=== PATIENT | male | born 1950 | race Two or more races ===

== ENCOUNTER 2021-02-14 21:00 | Inpatient (IN) | payer OTHER ==
[~2021-02-14] VITALS: Ht 185.4 cm; Wt 93.2 kg
[2021-02-14] MEDS ORDERED: ACETAMINOPHEN 325 MG TAB PO ONE (21:30)
[2021-02-14 22:17] LABS: Basophils # (auto) 0 10 ^3/uL (0-0.2); Basophils % (auto) 0.5 % (0.0-2.0); Eosinophils # (auto) 0 10 ^3/uL (0-0.8); Eosinophils % (auto) 0.1 % (0.0-7.0); Hematocrit 45.8 % (41.0-53.0); Lymphocytes # (auto) 0.6 10 ^3/uL (0.4-5.4); Mean Corpuscular Hemoglobin 32.1 pg (28.0-32.0); Mean Corpuscular Volume 91.6 fL (80.0-100.0); Monocytes # (auto) 0.3 10 ^3/uL (0-1.3); Monocytes % (auto) 4.4 % (0.0-12.0); Neutrophils # (auto) 4.9 10 ^3/uL (1.6-8.6); Red Cell Distribution Width 14.1 % (11.8-14.3); White Blood Cell 5.8 10^3/uL (4.4-10.8)
[2021-02-14 22:27] LABS: INR 1.05 (0.9-1.15)
[2021-02-14 22:28] LABS: Albumin 2.6 g/dL (3.4-5.0); Anion Gap 10 (5-15); BUN/Creatinine Ratio 22.5; Blood Urea Nitrogen 36 mg/dL (7-18); Calcium 8.3 mg/dL (8.5-10.1); Carbon Dioxide 20 mmol/L (21-32); Chloride 107 mmol/L (98-107); GFR African American 56 mL/min; GFR Non-African American 46 mL/min; Glucose 135 mg/dL (74-106); Magnesium 2.6 mg/dL (1.6-2.6); Potassium 4.1 mmol/L (3.5-5.1); Sodium 137 mmol/L (136-145)
[2021-02-14 22:33] LABS: Alanine Aminotransferase 104 U/L (16-61); Alkaline Phosphatase 70 U/L (45-117); Aspartate Aminotransferase 140 U/L (15-37); Bilirubin, Total 0.6 mg/dL (0.2-1.0); Total Protein 6.5 g/dL (6.4-8.2)
[2021-02-15] VITALS (40 sets, daily range): BP systolic 101–153; BP diastolic 60–84
[2021-02-15] MEDS ORDERED: AZITHROMYCIN 500MG/ 250ML 250 ML IV ONE (00:15)
[2021-02-15] MEDS ORDERED: DexAMETHasone SOD PHOS 10MG/1ML VIAL INJ IV ONE (00:15)
[2021-02-15] MEDS ORDERED: NITROGLYCERIN 0.4 MG SL TAB SL PRN (03:00)
[2021-02-15] MEDS ORDERED: cefTRIAXone 1GM/50ML D5W 50 ML IV ONE (03:00)
[2021-02-15] MEDS ORDERED: MORPHINE SULF INJ 2 MG/ML SYRINGE 1ML IV PRN (03:00)
[2021-02-15 04:22] LABS: Magnesium 2.8 mg/dL (1.6-2.6)
[2021-02-15] MEDS: IPRATROPIUM BROMIDE HFA AER IN SCH ×4 (06:00→22:22)
[2021-02-15] MEDS: cefTRIAXone 1GM/50ML D5W 50 ML IV SCH (08:57)
[2021-02-15] MEDS: AZITHROMYCIN 500MG/ 250ML 250 ML IV SCH (10:44)
[2021-02-15] MEDS: ENOXAPARIN SOD 40 MG/0.4 ML SYRINGE SC SCH (10:44)
[2021-02-15] MEDS: ZINC SULFATE 220mg CAP or TAB PO SCH (10:45)
[2021-02-15] MEDS ORDERED: REMDESIVIR PER PHARMACY 0 ML IV SCH (10:45)
[2021-02-15] MEDS: CHOLECALCIFEROL (VITD3) 2,000 UNIT CAP/TAB PO SCH (10:45)
[2021-02-15] MEDS: DexAMETHasone SOD PHOS 10MG/1ML VIAL INJ IV SCH (10:45)
[2021-02-15] MEDS: PANTOPRAZOLE 40 MG TAB PO SCH (10:45)
[2021-02-15] MEDS: ASCORBIC ACID 1,000 MG TAB PO SCH (10:45)
[2021-02-15] MEDS: BUDESONIDE (INHALATION) 180 MCG IH IN SCH ×2 (11:01→18:47)
[2021-02-15] MEDS: TOCILIZUMAB 400 MG in SODIUM CHL 0.9% 80 ML IV SCH (14:05)
[2021-02-15] MEDS ORDERED: FINA1TAB10 OR (14:31)
[2021-02-15] MEDS ORDERED: ATO40T PO (14:31)
[2021-02-15] MEDS ORDERED: FENO54TA PO (14:31)
[2021-02-15] MEDS ORDERED: TAM04C PO (14:31)
[2021-02-15] MEDS ORDERED: LISI-275 PO (14:31)
[2021-02-15] MEDS ORDERED: CLOP75TA70 PO (14:31)
[2021-02-15] MEDS ORDERED: REMDESIVIR 200 MG in NS 210ml LOADING DOSE ADULT IV ONE (15:00)
[2021-02-15 15:06] LABS: Cholesterol 91 mg/dL (< 200)
[2021-02-15 15:08] LABS: HDL Cholesterol 25 mg/dL (40-59); LDL Cholesterol 37 mg/dL (< 100); Triglycerides 222 mg/dL (< 150)
[2021-02-15] MEDS: MUPIROCIN 2% OINT 15gm or 22gm EACHNOSTRI SCH (21:49)
[2021-02-15] MEDS ORDERED: ATORVASTATIN 20 MG TAB PO SCH (22:00)
[2021-02-16] VITALS (23 sets, daily range): BP systolic 105–134; BP diastolic 56–85
[2021-02-16 05:11] LABS: Basophils # (auto) 0 10 ^3/uL (0-0.2); Basophils % (auto) 0.3 % (0.0-2.0); Eosinophils # (auto) 0 10 ^3/uL (0-0.8); Hemoglobin 16.3 g/dL (13.5-17.5); Lymphocytes # (auto) 0.6 10 ^3/uL (0.4-5.4); Lymphocytes % (auto) 8.1 % (10.0-50.0); Mean Corpuscular Hemoglobin 31.9 pg (28.0-32.0); Mean Corpuscular Hgb Conc. 34.6 g/dL (32.0-36.0); Mean Corpuscular Volume 92.3 fL (80.0-100.0); Monocytes # (auto) 0.3 10 ^3/uL (0-1.3); Monocytes % (auto) 4.1 % (0.0-12.0); Neutrophils % (auto) 87.5 % (37.0-80.0); Nucleated Red Blood Cells % 0.1 %; Red Cell Distribution Width 14.2 % (11.8-14.3); White Blood Cell 6.9 10^3/uL (4.4-10.8)
[2021-02-16 05:21] LABS: Albumin 2.3 g/dL (3.4-5.0); Calcium 8.4 mg/dL (8.5-10.1); Potassium 4.3 mmol/L (3.5-5.1)
[2021-02-16 05:26] LABS: BUN/Creatinine Ratio 27.7; Bilirubin, Total 0.6 mg/dL (0.2-1.0); Total Protein 6.5 g/dL (6.4-8.2)
[2021-02-16] MEDS: IPRATROPIUM BROMIDE HFA AER IN SCH ×4 (06:20→22:00)
[2021-02-16] MEDS: BUDESONIDE (INHALATION) 180 MCG IH IN SCH ×2 (06:20→22:00)
[2021-02-16] MEDS: cefTRIAXone 1GM/50ML D5W 50 ML IV SCH (09:04)
[2021-02-16] MEDS: LISINOPRIL 5 MG TAB PO SCH (10:00)
[2021-02-16] MEDS: ASCORBIC ACID 1,000 MG TAB PO SCH (10:26)
[2021-02-16] MEDS: PANTOPRAZOLE 40 MG TAB PO SCH (10:27)
[2021-02-16] MEDS: ZINC SULFATE 220mg CAP or TAB PO SCH (10:27)
[2021-02-16] MEDS: ENOXAPARIN SOD 40 MG/0.4 ML SYRINGE SC SCH (10:27)
[2021-02-16] MEDS: CHOLECALCIFEROL (VITD3) 2,000 UNIT CAP/TAB PO SCH (10:27)
[2021-02-16] MEDS: CLOPIDOGREL BISULFATE 75 MG TAB PO SCH (10:27)
[2021-02-16] MEDS: AZITHROMYCIN 500MG/ 250ML 250 ML IV SCH (10:28)
[2021-02-16] MEDS: DexAMETHasone SOD PHOS 10MG/1ML VIAL INJ IV SCH (10:28)
[2021-02-16] MEDS: TOCILIZUMAB 400 MG in SODIUM CHL 0.9% 80 ML IV SCH (14:05)
[2021-02-16] MEDS: REMDESIVIR 100mg 100 MG in SODIUM CHL 0.9% 230 ML IV SCH (15:57)
[2021-02-16] MEDS: MUPIROCIN 2% OINT 15gm or 22gm EACHNOSTRI SCH (22:02)
[2021-02-16] MEDS: ATORVASTATIN 20 MG TAB PO SCH (22:03)
[2021-02-17 00:01] VITALS: BP 128/66
[2021-02-17 04:00] VITALS: BP 130/65
[2021-02-17] MEDS: IPRATROPIUM BROMIDE HFA AER IN SCH ×5 (06:00→22:00)
[2021-02-17 08:00] VITALS: BP 133/70
[2021-02-17] MEDS: cefTRIAXone 1GM/50ML D5W 50 ML IV SCH (08:39)
[2021-02-17] MEDS: BUDESONIDE (INHALATION) 180 MCG IH IN SCH ×2 (10:00→22:00)
[2021-02-17] MEDS: LISINOPRIL 5 MG TAB PO SCH (10:00)
[2021-02-17] MEDS: AZITHROMYCIN 500MG/ 250ML 250 ML IV SCH (10:26)
[2021-02-17] MEDS: CLOPIDOGREL BISULFATE 75 MG TAB PO SCH (10:27)
[2021-02-17] MEDS: PANTOPRAZOLE 40 MG TAB PO SCH (10:27)
[2021-02-17] MEDS: TAMSULOSIN HYDROCHLORIDE 0.4 MG CAP PO SCH (10:27)
[2021-02-17] MEDS: ZINC SULFATE 220mg CAP or TAB PO SCH (10:27)
[2021-02-17] MEDS: ENOXAPARIN SOD 40 MG/0.4 ML SYRINGE SC SCH (10:27)
[2021-02-17] MEDS: CHOLECALCIFEROL (VITD3) 2,000 UNIT CAP/TAB PO SCH (10:27)
[2021-02-17] MEDS: ASCORBIC ACID 1,000 MG TAB PO SCH (10:27)
[2021-02-17] MEDS: DexAMETHasone SOD PHOS 10MG/1ML VIAL INJ IV SCH (10:28)
[2021-02-17] MEDS: FINASTERIDE 5 MG TAB PO SCH (10:28)
[2021-02-17] MEDS: MUPIROCIN 2% OINT 15gm or 22gm EACHNOSTRI SCH ×2 (10:29→22:04)
[2021-02-17 11:34] LABS: Albumin 2.5 g/dL (3.4-5.0); Calcium 8.7 mg/dL (8.5-10.1); Potassium 4.5 mmol/L (3.5-5.1)
[2021-02-17 11:44] LABS: BUN/Creatinine Ratio 28.6; Bilirubin, Total 0.5 mg/dL (0.2-1.0); Total Protein 6.4 g/dL (6.4-8.2)
[2021-02-17 12:00] VITALS: BP 131/74
[2021-02-17] MEDS: REMDESIVIR 100mg 100 MG in SODIUM CHL 0.9% 230 ML IV SCH (15:18)
[2021-02-17 16:00] VITALS: BP 134/73
[2021-02-17 20:00] VITALS: BP 135/77
[2021-02-17] MEDS: ATORVASTATIN 20 MG TAB PO SCH (22:04)
[2021-02-18] VITALS (7 sets, daily range): BP systolic 113–137; BP diastolic 59–82
[2021-02-18] MEDS: SIMETHICONE 80 MG CHEWABLE TABLET PO PRN (00:21)
[2021-02-18] MEDS ORDERED: SODIUM CHLORIDE 0.9% 500 ML IV ONE (00:30)
[2021-02-18] MEDS ORDERED: chlorproMAZINE HCL 25 MG TAB PO PRN ×2 (00:30→11:15)
[2021-02-18] MEDS: TEMAZEPAM 15 MG CAP PO PRN ×2 (03:21→23:06)
[2021-02-18 05:26] LABS: Basophils # (auto) 0 10 ^3/uL (0-0.2); Basophils % (auto) 0.2 % (0.0-2.0); Eosinophils # (auto) 0 10 ^3/uL (0-0.8); Hematocrit 47.5 % (41.0-53.0); Hemoglobin 16.7 g/dL (13.5-17.5); Lymphocytes # (auto) 0.5 10 ^3/uL (0.4-5.4); Lymphocytes % (auto) 7.5 % (10.0-50.0); Mean Corpuscular Hemoglobin 32.4 pg (28.0-32.0); Mean Corpuscular Hgb Conc. 35.1 g/dL (32.0-36.0); Mean Corpuscular Volume 92.3 fL (80.0-100.0); Monocytes # (auto) 0.2 10 ^3/uL (0-1.3); Monocytes % (auto) 3.6 % (0.0-12.0); Neutrophils # (auto) 5.8 10 ^3/uL (1.6-8.6); Neutrophils % (auto) 88.7 % (37.0-80.0); Nucleated Red Blood Cells % 0.1 %; Red Blood Cells 5.15 10^6/uL (4.5-5.90); Red Cell Distribution Width 14.2 % (11.8-14.3); White Blood Cell 6.5 10^3/uL (4.4-10.8)
[2021-02-18 05:45] LABS: Potassium 4.4 mmol/L (3.5-5.1)
[2021-02-18 05:48] LABS: Albumin 2.7 g/dL (3.4-5.0); Calcium 8.5 mg/dL (8.5-10.1)
[2021-02-18 05:51] LABS: Bilirubin, Total 0.7 mg/dL (0.2-1.0); Total Protein 6.2 g/dL (6.4-8.2)
[2021-02-18] MEDS: BUDESONIDE (INHALATION) 180 MCG IH IN SCH (06:22)
[2021-02-18] MEDS: IPRATROPIUM BROMIDE HFA AER IN SCH ×3 (06:22→18:00)
[2021-02-18] MEDS: cefTRIAXone 1GM/50ML D5W 50 ML IV SCH (09:01)
[2021-02-18] MEDS: TAMSULOSIN HYDROCHLORIDE 0.4 MG CAP PO SCH (09:21)
[2021-02-18] MEDS: MUPIROCIN 2% OINT 15gm or 22gm EACHNOSTRI SCH ×2 (09:21→23:05)
[2021-02-18] MEDS: PANTOPRAZOLE 40 MG TAB PO SCH (09:21)
[2021-02-18] MEDS: ZINC SULFATE 220mg CAP or TAB PO SCH (09:21)
[2021-02-18] MEDS: CLOPIDOGREL BISULFATE 75 MG TAB PO SCH (09:21)
[2021-02-18] MEDS: ASCORBIC ACID 1,000 MG TAB PO SCH (09:22)
[2021-02-18] MEDS: CHOLECALCIFEROL (VITD3) 2,000 UNIT CAP/TAB PO SCH (09:22)
[2021-02-18] MEDS: AZITHROMYCIN 500MG/ 250ML 250 ML IV SCH (09:22)
[2021-02-18] MEDS: DexAMETHasone SOD PHOS 10MG/1ML VIAL INJ IV SCH (09:22)
[2021-02-18] MEDS: FINASTERIDE 5 MG TAB PO SCH (09:22)
[2021-02-18] MEDS: LISINOPRIL 5 MG TAB PO SCH (09:23)
[2021-02-18] MEDS: ENOXAPARIN SOD 40 MG/0.4 ML SYRINGE SC SCH (09:23)
[2021-02-18] MEDS ORDERED: BACLOFEN 10 MG TAB PO PRN (10:00)
[2021-02-18] MEDS: REMDESIVIR 100mg 100 MG in SODIUM CHL 0.9% 230 ML IV SCH (14:55)
[2021-02-18] MEDS: ATORVASTATIN 20 MG TAB PO SCH (23:06)
[2021-02-18] MEDS ORDERED: guaiFENesin 200 MG/10 ML UD PO PRN (23:45)
[2021-02-19] VITALS: BP 124/66
[2021-02-19] MEDS: IPRATROPIUM BROMIDE HFA AER IN SCH ×5 (00:11→22:36)
[2021-02-19] MEDS: BUDESONIDE (INHALATION) 180 MCG IH IN SCH ×3 (00:11→22:36)
[2021-02-19] MEDS: ALBUTEROL SULF HFA 90MCG INH 200DOSE IN PRN (00:12)
[2021-02-19 04:00] VITALS: BP 129/76
[2021-02-19 05:28] LABS: Basophils # (auto) 0 10 ^3/uL (0-0.2); Eosinophils # (auto) 0 10 ^3/uL (0-0.8); Eosinophils % (auto) 0.5 % (0.0-7.0); Hematocrit 49.8 % (41.0-53.0); Hemoglobin 17.2 g/dL (13.5-17.5); Lymphocytes # (auto) 0.6 10 ^3/uL (0.4-5.4); Lymphocytes % (auto) 7.4 % (10.0-50.0); Mean Corpuscular Hemoglobin 31.9 pg (28.0-32.0); Mean Corpuscular Hgb Conc. 34.5 g/dL (32.0-36.0); Mean Corpuscular Volume 92.4 fL (80.0-100.0); Monocytes # (auto) 0.2 10 ^3/uL (0-1.3); Monocytes % (auto) 2.6 % (0.0-12.0); Neutrophils # (auto) 6.7 10 ^3/uL (1.6-8.6); Neutrophils % (auto) 89.5 % (37.0-80.0); Nucleated Red Blood Cells % 0.1 %; Red Blood Cells 5.39 10^6/uL (4.5-5.90); Red Cell Distribution Width 13.6 % (11.8-14.3); White Blood Cell 7.5 10^3/uL (4.4-10.8)
[2021-02-19 06:04] LABS: Potassium 4.4 mmol/L (3.5-5.1)
[2021-02-19 06:12] LABS: Albumin 2.5 g/dL (3.4-5.0); BUN/Creatinine Ratio 27.6; Bilirubin, Total 0.7 mg/dL (0.2-1.0); Calcium 8.6 mg/dL (8.5-10.1); Total Protein 6.2 g/dL (6.4-8.2)
[2021-02-19 08:00] VITALS: BP 124/74
[2021-02-19] MEDS: ONDANSETRON HCL 4 MG/2 ML VIAL IV PRN (08:43)
[2021-02-19] MEDS ORDERED: FUROSEMIDE 20 MG/2 ML VIAL IV ONE (09:00)
[2021-02-19] MEDS: cefTRIAXone 1GM/50ML D5W 50 ML IV SCH (09:25)
[2021-02-19] MEDS: MUPIROCIN 2% OINT 15gm or 22gm EACHNOSTRI SCH ×2 (09:26→22:55)
[2021-02-19] MEDS: CHOLECALCIFEROL (VITD3) 2,000 UNIT CAP/TAB PO SCH (09:27)
[2021-02-19] MEDS: ZINC SULFATE 220mg CAP or TAB PO SCH (09:27)
[2021-02-19] MEDS: DexAMETHasone SOD PHOS 10MG/1ML VIAL INJ IV SCH (09:27)
[2021-02-19] MEDS: TAMSULOSIN HYDROCHLORIDE 0.4 MG CAP PO SCH (09:28)
[2021-02-19] MEDS: PANTOPRAZOLE 40 MG TAB PO SCH (09:28)
[2021-02-19] MEDS: ASCORBIC ACID 1,000 MG TAB PO SCH (09:28)
[2021-02-19] MEDS: CLOPIDOGREL BISULFATE 75 MG TAB PO SCH (09:29)
[2021-02-19] MEDS: ENOXAPARIN SOD 40 MG/0.4 ML SYRINGE SC SCH (09:30)
[2021-02-19] MEDS: FINASTERIDE 5 MG TAB PO SCH (09:31)
[2021-02-19] MEDS ORDERED: hydrALAZINE HCL 20 MG/ML VL IV PRN (09:45)
[2021-02-19 12:00] VITALS: BP 135/84
[2021-02-19] MEDS: AZITHROMYCIN 500MG/ 250ML 250 ML IV SCH (14:06)
[2021-02-19] MEDS: Ensure Enlive Strawberry 8oz Bottle PO SCH ×2 (14:58→18:00)
[2021-02-19] MEDS: ACETAMINOPHEN 500 MG TAB PO PRN (14:59)
[2021-02-19 16:00] VITALS: BP 113/74
[2021-02-19] MEDS: REMDESIVIR 100mg 100 MG in SODIUM CHL 0.9% 230 ML IV SCH (16:44)
[2021-02-19 19:00] VITALS: BP 111/60
[2021-02-19] MEDS: ATORVASTATIN 20 MG TAB PO SCH (22:55)
[2021-02-19] MEDS: TEMAZEPAM 15 MG CAP PO PRN (22:56)
[2021-02-20] VITALS (9 sets, daily range): BP systolic 100–138; BP diastolic 56–84
[2021-02-20 05:42] LABS: Calcium 8.7 mg/dL (8.5-10.1); Potassium 4.5 mmol/L (3.5-5.1)
[2021-02-20 05:45] LABS: BUN/Creatinine Ratio 26.2
[2021-02-20] MEDS: PANTOPRAZOLE 40 MG TAB PO SCH (08:27)
[2021-02-20] MEDS: ONDANSETRON HCL 4 MG/2 ML VIAL IV PRN (08:27)
[2021-02-20] MEDS: SIMETHICONE 80 MG CHEWABLE TABLET PO PRN (08:27)
[2021-02-20] MEDS: cefTRIAXone 1GM/50ML D5W 50 ML IV SCH (08:54)
[2021-02-20] MEDS: Ensure Enlive Strawberry 8oz Bottle PO SCH ×3 (09:00→21:31)
[2021-02-20] MEDS ORDERED: FUROSEMIDE 20 MG/2 ML VIAL IV ONE (09:15)
[2021-02-20] MEDS: PROMETHAZINE W/CODEINE 5 ML ORAL SYRUP PO PRN ×2 (09:43→22:00)
[2021-02-20] MEDS: ASCORBIC ACID 1,000 MG TAB PO SCH (09:44)
[2021-02-20] MEDS: FINASTERIDE 5 MG TAB PO SCH (09:44)
[2021-02-20] MEDS: TAMSULOSIN HYDROCHLORIDE 0.4 MG CAP PO SCH (09:44)
[2021-02-20] MEDS: CHOLECALCIFEROL (VITD3) 2,000 UNIT CAP/TAB PO SCH (09:44)
[2021-02-20] MEDS: ZINC SULFATE 220mg CAP or TAB PO SCH (09:44)
[2021-02-20] MEDS: DexAMETHasone SOD PHOS 10MG/1ML VIAL INJ IV SCH (09:49)
[2021-02-20] MEDS: ENOXAPARIN SOD 40 MG/0.4 ML SYRINGE SC SCH (09:49)
[2021-02-20] MEDS: CLOPIDOGREL BISULFATE 75 MG TAB PO SCH (09:51)
[2021-02-20] MEDS: MUPIROCIN 2% OINT 15gm or 22gm EACHNOSTRI SCH (13:19)
[2021-02-20] MEDS: IPRATROPIUM BROMIDE HFA AER IN SCH (18:51)
[2021-02-20] MEDS: BUDESONIDE (INHALATION) 180 MCG IH IN SCH (18:51)
[2021-02-20] MEDS: ATORVASTATIN 20 MG TAB PO SCH (22:00)
[2021-02-20] MEDS: TEMAZEPAM 15 MG CAP PO PRN (22:00)
[2021-02-21] VITALS (17 sets, daily range): BP systolic 95–118; BP diastolic 56–72
[2021-02-21 04:45] LABS: Basophils # (auto) 0 10 ^3/uL (0-0.2); Hemoglobin 18.1 g/dL (13.5-17.5); Lymphocytes # (auto) 0.4 10 ^3/uL (0.4-5.4); Monocytes # (auto) 0.2 10 ^3/uL (0-1.3); Nucleated Red Blood Cells % 0.2 %
[2021-02-21 04:47] LABS: Basophils % (auto) 0.2 % (0.0-2.0); Eosinophils # (auto) 0.2 10 ^3/uL (0-0.8); Eosinophils % (auto) 2.3 % (0.0-7.0); Lymphocytes % (auto) 6.6 % (10.0-50.0); Mean Corpuscular Hemoglobin 32.4 pg (28.0-32.0); Mean Corpuscular Hgb Conc. 35.4 g/dL (32.0-36.0); Mean Corpuscular Volume 91.5 fL (80.0-100.0); Monocytes % (auto) 2.5 % (0.0-12.0); Neutrophils % (auto) 88.4 % (37.0-80.0); Red Blood Cells 5.58 10^6/uL (4.5-5.90); Red Cell Distribution Width 13.8 % (11.8-14.3); White Blood Cell 6.8 10^3/uL (4.4-10.8)
[2021-02-21] MEDS: IPRATROPIUM BROMIDE HFA AER IN SCH ×5 (04:56→23:12)
[2021-02-21 05:04] LABS: Potassium 4.6 mmol/L (3.5-5.1)
[2021-02-21 05:13] LABS: Albumin 2.5 g/dL (3.4-5.0); Bilirubin, Total 0.7 mg/dL (0.2-1.0); Calcium 8.6 mg/dL (8.5-10.1)
[2021-02-21] MEDS: MORPHINE SULF INJ 2 MG/ML SYRINGE 1ML IV PRN (05:43)
[2021-02-21] MEDS: PROMETHAZINE W/CODEINE 5 ML ORAL SYRUP PO PRN (05:44)
[2021-02-21] MEDS: BUDESONIDE (INHALATION) 180 MCG IH IN SCH ×2 (07:08→19:26)
[2021-02-21] MEDS: ALBUTEROL SULF HFA 90MCG INH 200DOSE IN PRN (07:10)
[2021-02-21] MEDS: Ensure Enlive Strawberry 8oz Bottle PO SCH ×3 (08:00→18:00)
[2021-02-21] MEDS: DexAMETHasone SOD PHOS 10MG/1ML VIAL INJ IV SCH (09:32)
[2021-02-21] MEDS: cefTRIAXone 1GM/50ML D5W 50 ML IV SCH (09:32)
[2021-02-21] MEDS: ZINC SULFATE 220mg CAP or TAB PO SCH (09:32)
[2021-02-21] MEDS: FINASTERIDE 5 MG TAB PO SCH (09:33)
[2021-02-21] MEDS: PANTOPRAZOLE 40 MG TAB PO SCH (09:33)
[2021-02-21] MEDS: TAMSULOSIN HYDROCHLORIDE 0.4 MG CAP PO SCH (09:33)
[2021-02-21] MEDS: ASCORBIC ACID 1,000 MG TAB PO SCH (09:33)
[2021-02-21] MEDS: CHOLECALCIFEROL (VITD3) 2,000 UNIT CAP/TAB PO SCH (09:34)
[2021-02-21] MEDS: ENOXAPARIN SOD 40 MG/0.4 ML SYRINGE SC SCH (09:34)
[2021-02-21] MEDS: CLOPIDOGREL BISULFATE 75 MG TAB PO SCH (10:00)
[2021-02-22] VITALS (22 sets, daily range): BP systolic 102–136; BP diastolic 54–86
[2021-02-22] MEDS: LORazepam 2MG/ML-1ML VIAL IV PRN ×4 (00:10→19:30)
[2021-02-22 04:57] LABS: Basophils # (auto) 0 10 ^3/uL (0-0.2); Basophils % (auto) 0.3 % (0.0-2.0); Eosinophils # (auto) 0.1 10 ^3/uL (0-0.8); Eosinophils % (auto) 1.5 % (0.0-7.0); Lymphocytes # (auto) 0.5 10 ^3/uL (0.4-5.4); Monocytes # (auto) 0.2 10 ^3/uL (0-1.3); Neutrophils # (auto) 7.7 10 ^3/uL (1.6-8.6)
[2021-02-22 04:59] LABS: Hematocrit 52.7 % (41.0-53.0); Hemoglobin 18.5 g/dL (13.5-17.5); Lymphocytes % (auto) 5.4 % (10.0-50.0); Mean Corpuscular Hemoglobin 32.3 pg (28.0-32.0); Mean Corpuscular Hgb Conc. 35.1 g/dL (32.0-36.0); Mean Corpuscular Volume 91.9 fL (80.0-100.0); Monocytes % (auto) 2.4 % (0.0-12.0); Neutrophils % (auto) 90.4 % (37.0-80.0); Red Blood Cells 5.73 10^6/uL (4.5-5.90); Red Cell Distribution Width 13.7 % (11.8-14.3); White Blood Cell 8.5 10^3/uL (4.4-10.8)
[2021-02-22 05:23] LABS: BUN/Creatinine Ratio 32.2; Calcium 8.7 mg/dL (8.5-10.1); Potassium 4.6 mmol/L (3.5-5.1)
[2021-02-22] MEDS: ALBUTEROL SULF HFA 90MCG INH 200DOSE IN PRN ×2 (06:34→11:32)
[2021-02-22] MEDS: IPRATROPIUM BROMIDE HFA AER IN SCH ×3 (06:34→18:00)
[2021-02-22] MEDS: BUDESONIDE (INHALATION) 180 MCG IH IN SCH (06:34)
[2021-02-22] MEDS: Ensure Enlive Strawberry 8oz Bottle PO SCH ×3 (08:00→16:17)
[2021-02-22] MEDS: MORPHINE SULF INJ 2 MG/ML SYRINGE 1ML IV PRN ×2 (08:30→23:20)
[2021-02-22] MEDS: TAMSULOSIN HYDROCHLORIDE 0.4 MG CAP PO SCH (08:55)
[2021-02-22] MEDS: DexAMETHasone SOD PHOS 10MG/1ML VIAL INJ IV SCH (08:55)
[2021-02-22] MEDS: ZINC SULFATE 220mg CAP or TAB PO SCH (08:55)
[2021-02-22] MEDS: PANTOPRAZOLE 40 MG TAB PO SCH (08:56)
[2021-02-22] MEDS: CLOPIDOGREL BISULFATE 75 MG TAB PO SCH (08:56)
[2021-02-22] MEDS: ENOXAPARIN SOD 40 MG/0.4 ML SYRINGE SC SCH (08:56)
[2021-02-22] MEDS: FINASTERIDE 5 MG TAB PO SCH (08:56)
[2021-02-22] MEDS: CHOLECALCIFEROL (VITD3) 2,000 UNIT CAP/TAB PO SCH (08:56)
[2021-02-22] MEDS: ASCORBIC ACID 1,000 MG TAB PO SCH (08:56)
[2021-02-22] MEDS ORDERED: FUROSEMIDE 20 MG/2 ML VIAL IV ONE (10:15)
[2021-02-22] MEDS ORDERED: FUROSEMIDE 20 MG/2 ML VIAL ONE (10:21)
[2021-02-22 12:15] LABS: INR 1.3 (0.9-1.15); Partial Thromboplastin Time 31.3 sec (23.0-31.2)
[2021-02-22] MEDS ORDERED: LIDOCAINE 1% (LOCAL ANESTH.) PF 5ml SDV ID ONE (16:00)
[2021-02-22] MEDS: ATORVASTATIN 20 MG TAB PO SCH (22:00)
[2021-02-22] MEDS: IPRATROPIUM BROM 0.5 MG/2.5ML INH SOL NEB PRN (22:10)
[2021-02-22] MEDS: ALBUTEROL SULF 2.5 MG/0.5ML(0.5%) NEB SOLN NEB PRN (22:10)
[2021-02-22] MEDS: BUDESONIDE (INHALATION) 0.5 MG/2 ML NEB NEB SCH (22:10)
[2021-02-22] MEDS ORDERED: ETOMIDATE (2MG/ML) 20ML VIAL IV ONE ×2 (22:34→22:45)
[2021-02-22] MEDS ORDERED: SUCCINYLCHOLINE CHLORIDE 20 MG/ML 10ML VIAL IV ONE ×2 (22:34→22:45)
[2021-02-22] MEDS ORDERED: HALOPERIDOL LACTATE 5 MG/ML INJ VIAL ONE (22:43)
[2021-02-22] MEDS ORDERED: HALOPERIDOL LACTATE 5 MG/ML INJ VIAL IM ONE (22:45)
[2021-02-23] VITALS (52 sets, daily range): BP systolic 81–179; BP diastolic 53–100
[2021-02-23] MEDS: SODIUM CHLOR 0.9% PF (SALINE LOCK) 10ML VIAL/SYR IV SCH ×3 (00:26→22:37)
[2021-02-23] MEDS: MORPHINE SULF INJ 2 MG/ML SYRINGE 1ML IV PRN (02:30)
[2021-02-23 04:44] LABS: Eosinophils # (auto) 0 10 ^3/uL (0-0.8); Eosinophils % (auto) 0.1 % (0.0-7.0); Lymphocytes # (auto) 0.4 10 ^3/uL (0.4-5.4); Monocytes # (auto) 0.3 10 ^3/uL (0-1.3)
[2021-02-23 04:47] LABS: Basophils # (auto) 0 10 ^3/uL (0-0.2); Basophils % (auto) 0.1 % (0.0-2.0); Hematocrit 52.1 % (41.0-53.0); Hemoglobin 18.3 g/dL (13.5-17.5); Lymphocytes % (auto) 3.4 % (10.0-50.0); Mean Corpuscular Volume 91.2 fL (80.0-100.0); Monocytes % (auto) 2.4 % (0.0-12.0); Neutrophils # (auto) 10.9 10 ^3/uL (1.6-8.6); Nucleated Red Blood Cells % 0.2 %; Red Blood Cells 5.72 10^6/uL (4.5-5.90); Red Cell Distribution Width 13.8 % (11.8-14.3); White Blood Cell 11.6 10^3/uL (4.4-10.8)
[2021-02-23 05:04] LABS: Calcium 8.7 mg/dL (8.5-10.1); Potassium 4.5 mmol/L (3.5-5.1)
[2021-02-23] MEDS: Ensure Enlive Strawberry 8oz Bottle PO SCH ×3 (08:00→18:00)
[2021-02-23] MEDS: IPRATROPIUM BROM 0.5 MG/2.5ML INH SOL NEB PRN (09:45)
[2021-02-23] MEDS: BUDESONIDE (INHALATION) 0.5 MG/2 ML NEB NEB SCH ×2 (09:45→18:53)
[2021-02-23] MEDS: CLOPIDOGREL BISULFATE 75 MG TAB PO SCH (10:00)
[2021-02-23] MEDS: ZINC SULFATE 220mg CAP or TAB PO SCH (10:00)
[2021-02-23] MEDS: FINASTERIDE 5 MG TAB PO SCH (10:00)
[2021-02-23] MEDS ORDERED: FUROSEMIDE 20 MG/2 ML VIAL IV SCH (10:00)
[2021-02-23] MEDS: ASCORBIC ACID 1,000 MG TAB PO SCH (10:00)
[2021-02-23] MEDS: CHOLECALCIFEROL (VITD3) 2,000 UNIT CAP/TAB PO SCH (10:00)
[2021-02-23] MEDS: PANTOPRAZOLE 40 MG TAB PO SCH (10:00)
[2021-02-23] MEDS: TAMSULOSIN HYDROCHLORIDE 0.4 MG CAP PO SCH (10:00)
[2021-02-23] MEDS: ENOXAPARIN SOD 40 MG/0.4 ML SYRINGE SC SCH (12:00)
[2021-02-23] MEDS: DexAMETHasone SOD PHOS 10MG/1ML VIAL INJ IV SCH (12:00)
[2021-02-23] MEDS ORDERED: fentaNYL Drip 2500mCg/250mlNS 250 ML IV ONE (13:50)
[2021-02-23] MEDS ORDERED: PROPOFOL 100 ML IV ONE (13:50)
[2021-02-23] MEDS ORDERED: NOREPINEPHRINE 8 MG/250ML KIT 250 ML IV ONE (13:51)
[2021-02-23] MEDS ORDERED: ETOMIDATE (2MG/ML) 20ML VIAL IV ONE ×2 (13:57→14:00)
[2021-02-23] MEDS ORDERED: ROCURONIUM 10MG/ML 10ML VIAL IV ONE ×2 (13:57→14:00)
[2021-02-23] MEDS: ATRACURIUM BESYLATE 1,000 MG in D5W 5% 150 ML IV SCH ×2 (14:00→19:15)
[2021-02-23] MEDS: PHENYLEPHRINE IV 250 ML IV SCH ×2 (14:00→22:20)
[2021-02-23] MEDS: fentaNYL Drip 2500mCg/250mlNS 250 ML IV SCH (14:45)
[2021-02-23] MEDS: PROPOFOL 100 ML IV SCH ×2 (14:45→22:44)
[2021-02-23] MEDS: MIDAZOLAM DRIP 50 mg/50mL 50 ML IV SCH ×2 (14:59→23:36)
[2021-02-23] MEDS: NOREPINEPHRINE 8 MG/250ML KIT 250 ML IV SCH (17:05)
[2021-02-23] MEDS: ATORVASTATIN 20 MG TAB PO SCH (21:06)
[2021-02-24] VITALS (101 sets, daily range): BP systolic 84–194; BP diastolic 50–102
[2021-02-24] MEDS: fentaNYL Drip 2500mCg/250mlNS 250 ML IV SCH (01:27)
[2021-02-24] MEDS: PROPOFOL 100 ML IV SCH ×4 (03:11→19:40)
[2021-02-24] MEDS: MIDAZOLAM DRIP 50 mg/50mL 50 ML IV SCH ×3 (03:15→14:36)
[2021-02-24 05:06] LABS: Basophils # (auto) 0.1 10 ^3/uL (0-0.2); Eosinophils # (auto) 0 10 ^3/uL (0-0.8); Monocytes # (auto) 0.5 10 ^3/uL (0-1.3); Nucleated Red Blood Cells % 0.1 %; Red Cell Distribution Width 13.8 % (11.8-14.3)
[2021-02-24 05:07] LABS: Basophils % (auto) 0.7 % (0.0-2.0); Hematocrit 53.3 % (41.0-53.0); Hemoglobin 18.4 g/dL (13.5-17.5); Lymphocytes # (auto) 0.3 10 ^3/uL (0.4-5.4); Mean Corpuscular Hemoglobin 32.5 pg (28.0-32.0); Mean Corpuscular Hgb Conc. 34.5 g/dL (32.0-36.0); Mean Corpuscular Volume 94.3 fL (80.0-100.0); Monocytes % (auto) 2.8 % (0.0-12.0); Neutrophils # (auto) 16.3 10 ^3/uL (1.6-8.6); Neutrophils % (auto) 94.5 % (37.0-80.0); Red Blood Cells 5.65 10^6/uL (4.5-5.90); White Blood Cell 17.3 10^3/uL (4.4-10.8)
[2021-02-24 05:25] LABS: Potassium 5.4 mmol/L (3.5-5.1)
[2021-02-24 05:36] LABS: BUN/Creatinine Ratio 31.2
[2021-02-24] MEDS: PHENYLEPHRINE IV 250 ML IV SCH ×3 (06:40→23:20)
[2021-02-24] MEDS ORDERED: InsuLIN REG 1unit/0.01ml Soln (100units/ml) IV ONE (07:15)
[2021-02-24] MEDS ORDERED: FUROSEMIDE 20 MG/2 ML VIAL IV ONE (07:15)
[2021-02-24] MEDS ORDERED: DEXTROSE (50%) 50ML SYRG IV ONE (07:15)
[2021-02-24] MEDS ORDERED: ALBUTEROL SULF 2.5 MG/0.5ML(0.5%) NEB SOLN NEB ONE (07:15)
[2021-02-24] MEDS ORDERED: SODIUM BICARBONATE 8.4% INJ 50ML SYRINGE IV ONE (07:15)
[2021-02-24] MEDS: NOREPINEPHRINE 8 MG/250ML KIT 250 ML IV SCH (07:20)
[2021-02-24] MEDS: Ensure Enlive Strawberry 8oz Bottle PO SCH ×3 (08:00→18:00)
[2021-02-24] MEDS: ALBUTEROL SULF 2.5 MG/0.5ML(0.5%) NEB SOLN NEB PRN ×2 (08:37→22:32)
[2021-02-24] MEDS: IPRATROPIUM BROM 0.5 MG/2.5ML INH SOL NEB PRN ×2 (08:37→22:32)
[2021-02-24] MEDS: BUDESONIDE (INHALATION) 0.5 MG/2 ML NEB NEB SCH ×2 (08:37→22:32)
[2021-02-24] MEDS: SODIUM CHLORIDE 0.9% 1,000 ML IV SCH (09:45)
[2021-02-24] MEDS: ASCORBIC ACID 1,000 MG TAB PO SCH (10:00)
[2021-02-24] MEDS: CLOPIDOGREL BISULFATE 75 MG TAB PO SCH (10:00)
[2021-02-24] MEDS: PANTOPRAZOLE 40 MG TAB PO SCH (10:00)
[2021-02-24] MEDS: TAMSULOSIN HYDROCHLORIDE 0.4 MG CAP PO SCH (10:00)
[2021-02-24] MEDS: ZINC SULFATE 220mg CAP or TAB PO SCH (10:00)
[2021-02-24] MEDS: FINASTERIDE 5 MG TAB PO SCH (10:00)
[2021-02-24] MEDS: SODIUM CHLOR 0.9% PF (SALINE LOCK) 10ML VIAL/SYR IV SCH ×2 (10:00→21:57)
[2021-02-24] MEDS: CHOLECALCIFEROL (VITD3) 2,000 UNIT CAP/TAB PO SCH (10:00)
[2021-02-24] MEDS ORDERED: DEXTROSE (50%) 50ML SYRG IV PRN ×2 (10:30→20:00)
[2021-02-24] MEDS: DexAMETHasone SOD PHOS 10MG/1ML VIAL INJ IV SCH (10:42)
[2021-02-24] MEDS: ENOXAPARIN SOD 40 MG/0.4 ML SYRINGE SC SCH (10:43)
[2021-02-24] MEDS: ACCU-CHEK COMFORT CURVE STRIP VI SCH ×2 (11:44→18:00)
[2021-02-24] MEDS: InsuLIN REG 1unit/0.01ml Soln (100units/ml) SC SCH ×2 (11:45→19:49)
[2021-02-24] MEDS ORDERED: FUROSEMIDE 40 MG/4 ML VIAL IV ONE (14:00)
[2021-02-24 16:33] LABS: Urine Bacteria NONE SEEN /hpf (None Seen); Urine Blood 1+ /uL (Negative); Urine Hyaline Cast FEW /lpf (0 - 2); Urine Specific Gravity 1.013 (1.001-1.035); Urine WBC 2 /hpf (0 - 3)
[2021-02-24] MEDS: ATORVASTATIN 20 MG TAB PO SCH (21:57)
[2021-02-25] VITALS (103 sets, daily range): BP systolic 73–224; BP diastolic 47–151
[2021-02-25] MEDS: SODIUM CHLORIDE 0.9% 1,000 ML IV SCH ×2 (00:10→16:49)
[2021-02-25] MEDS: ACCU-CHEK COMFORT CURVE STRIP VI SCH ×4 (00:28→17:49)
[2021-02-25] MEDS: InsuLIN REG 1unit/0.01ml Soln (100units/ml) SC SCH ×4 (00:31→18:17)
[2021-02-25] MEDS: fentaNYL Drip 2500mCg/250mlNS 250 ML IV SCH (01:40)
[2021-02-25 05:19] LABS: Hematocrit 50.6 % (41.0-53.0); Hemoglobin 17.6 g/dL (13.5-17.5); Mean Corpuscular Hgb Conc. 34.7 g/dL (32.0-36.0); Mean Corpuscular Volume 92.2 fL (80.0-100.0); Red Blood Cells 5.48 10^6/uL (4.5-5.90); Red Cell Distribution Width 13.7 % (11.8-14.3); White Blood Cell 15.6 10^3/uL (4.4-10.8)
[2021-02-25 05:28] LABS: Basophils % (manual) 0 (0.0-2.0); Blast Cells 0; Eosinophils % (manual) 0 (0-7); Metamyelocytes % 0; Myelocytes % 0; Promyelocytes % 0
[2021-02-25 05:30] LABS: BUN/Creatinine Ratio 28.7; Calcium 8.1 mg/dL (8.5-10.1); Potassium 4.1 mmol/L (3.5-5.1)
[2021-02-25 07:00] LABS: Band Neutrophils % (manual) 15; Lymphocytes % (manual) 2 (10.0-50.0); Monocytes % (manual) 4 (0-12); Reactive Lymphocytes 1
[2021-02-25] MEDS: PHENYLEPHRINE IV 250 ML IV SCH ×2 (07:40→16:00)
[2021-02-25] MEDS: Ensure Enlive Strawberry 8oz Bottle PO SCH (08:00)
[2021-02-25] MEDS: IPRATROPIUM BROM 0.5 MG/2.5ML INH SOL NEB PRN (09:05)
[2021-02-25] MEDS: BUDESONIDE (INHALATION) 0.5 MG/2 ML NEB NEB SCH ×2 (09:05→17:37)
[2021-02-25] MEDS: ALBUTEROL SULF 2.5 MG/0.5ML(0.5%) NEB SOLN NEB PRN ×2 (09:05→17:37)
[2021-02-25] MEDS: INSULIN LANTUS (GLARGINE) 1 /0.01ml (100units/ml) SC SCH (09:30)
[2021-02-25] MEDS ORDERED: DEXTROSE (50%) 50ML SYRG IV PRN (09:45)
[2021-02-25] MEDS: ENOXAPARIN SOD 40 MG/0.4 ML SYRINGE SC SCH (10:00)
[2021-02-25] MEDS: DexAMETHasone SOD PHOS 10MG/1ML VIAL INJ IV SCH (10:00)
[2021-02-25] MEDS: CLOPIDOGREL BISULFATE 75 MG TAB PO SCH (10:00)
[2021-02-25] MEDS: PANTOPRAZOLE 40 MG/10 ML VIAL INJ IV SCH (10:00)
[2021-02-25] MEDS: TAMSULOSIN HYDROCHLORIDE 0.4 MG CAP PO SCH (10:00)
[2021-02-25] MEDS: CHOLECALCIFEROL (VITD3) 2,000 UNIT CAP/TAB PO SCH (10:00)
[2021-02-25] MEDS: FINASTERIDE 5 MG TAB PO SCH (10:00)
[2021-02-25] MEDS: ASCORBIC ACID 1,000 MG TAB PO SCH (10:00)
[2021-02-25] MEDS: SODIUM CHLOR 0.9% PF (SALINE LOCK) 10ML VIAL/SYR IV SCH ×2 (10:00→22:33)
[2021-02-25] MEDS: ZINC SULFATE 220mg CAP or TAB PO SCH (10:00)
[2021-02-25] MEDS: ATRACURIUM BESYLATE 1,000 MG in D5W 5% 150 ML IV SCH (14:00)
[2021-02-25] MEDS: NOREPINEPHRINE 8 MG/250ML KIT 250 ML IV SCH (16:49)
[2021-02-25] MEDS: MIDAZOLAM DRIP 50 mg/50mL 50 ML IV SCH (16:50)
[2021-02-25] MEDS: ATORVASTATIN 20 MG TAB PO SCH (22:35)
[2021-02-26] VITALS (108 sets, daily range): BP systolic 88–163; BP diastolic 51–89
[2021-02-26] MEDS: ACCU-CHEK COMFORT CURVE STRIP VI SCH ×4 (00:15→17:38)
[2021-02-26] MEDS: InsuLIN REG 1unit/0.01ml Soln (100units/ml) SC SCH ×4 (00:19→17:40)
[2021-02-26] MEDS: PHENYLEPHRINE IV 250 ML IV SCH ×3 (00:20→14:02)
[2021-02-26] MEDS: fentaNYL Drip 2500mCg/250mlNS 250 ML IV SCH (01:53)
[2021-02-26] MEDS: SODIUM CHLORIDE 0.9% 1,000 ML IV SCH (01:53)
[2021-02-26] MEDS: MIDAZOLAM DRIP 50 mg/50mL 50 ML IV SCH (01:54)
[2021-02-26 06:31] LABS: Basophils # (auto) 0.1 10 ^3/uL (0-0.2); Basophils % (auto) 0.4 % (0.0-2.0); Eosinophils # (auto) 0 10 ^3/uL (0-0.8); Eosinophils % (auto) 0.1 % (0.0-7.0); Hematocrit 46.4 % (41.0-53.0); Hemoglobin 15.7 g/dL (13.5-17.5); Lymphocytes # (auto) 0.3 10 ^3/uL (0.4-5.4); Lymphocytes % (auto) 1.6 % (10.0-50.0); Mean Corpuscular Hemoglobin 32.3 pg (28.0-32.0); Mean Corpuscular Hgb Conc. 33.9 g/dL (32.0-36.0); Mean Corpuscular Volume 95.3 fL (80.0-100.0); Monocytes # (auto) 0.5 10 ^3/uL (0-1.3); Monocytes % (auto) 2.6 % (0.0-12.0); Neutrophils # (auto) 17.2 10 ^3/uL (1.6-8.6); Neutrophils % (auto) 95.3 % (37.0-80.0); Red Blood Cells 4.87 10^6/uL (4.5-5.90); Red Cell Distribution Width 14.1 % (11.8-14.3); White Blood Cell 18.1 10^3/uL (4.4-10.8)
[2021-02-26] MEDS: BUDESONIDE (INHALATION) 0.5 MG/2 ML NEB NEB SCH ×2 (06:39→23:09)
[2021-02-26] MEDS: ALBUTEROL SULF 2.5 MG/0.5ML(0.5%) NEB SOLN NEB PRN ×2 (06:40→23:09)
[2021-02-26] MEDS: IPRATROPIUM BROM 0.5 MG/2.5ML INH SOL NEB PRN ×2 (06:40→23:09)
[2021-02-26] MEDS: INSULIN LANTUS (GLARGINE) 1 /0.01ml (100units/ml) SC SCH (06:46)
[2021-02-26 06:47] LABS: Calcium 7.5 mg/dL (8.5-10.1); Potassium 4.8 mmol/L (3.5-5.1)
[2021-02-26 06:49] LABS: BUN/Creatinine Ratio 35.5
[2021-02-26] MEDS: CLOPIDOGREL BISULFATE 75 MG TAB PO SCH (10:00)
[2021-02-26] MEDS: CHOLECALCIFEROL (VITD3) 2,000 UNIT CAP/TAB PO SCH (10:00)
[2021-02-26] MEDS: ZINC SULFATE 220mg CAP or TAB PO SCH (10:00)
[2021-02-26] MEDS: FINASTERIDE 5 MG TAB PO SCH (10:00)
[2021-02-26] MEDS: TAMSULOSIN HYDROCHLORIDE 0.4 MG CAP PO SCH (10:00)
[2021-02-26] MEDS: ASCORBIC ACID 1,000 MG TAB PO SCH (10:00)
[2021-02-26] MEDS: SODIUM CHLOR 0.9% PF (SALINE LOCK) 10ML VIAL/SYR IV SCH ×2 (10:11→21:46)
[2021-02-26] MEDS: DexAMETHasone SOD PHOS 10MG/1ML VIAL INJ IV SCH (10:11)
[2021-02-26] MEDS: PANTOPRAZOLE 40 MG/10 ML VIAL INJ IV SCH (10:11)
[2021-02-26] MEDS: ENOXAPARIN SOD 40 MG/0.4 ML SYRINGE SC SCH (10:12)
[2021-02-26] MEDS ORDERED: FREE WATER GT SCH (12:00)
[2021-02-26] MEDS: ATRACURIUM BESYLATE 1,000 MG in D5W 5% 150 ML IV SCH (12:58)
[2021-02-26] MEDS: NOREPINEPHRINE 8 MG/250ML KIT 250 ML IV SCH (14:00)
[2021-02-26] MEDS: PROPOFOL 100 ML IV SCH (14:01)
[2021-02-26] MEDS: FREE WATER GT SCH (17:38)
[2021-02-26] MEDS: ATORVASTATIN 20 MG TAB PO SCH (21:46)
[2021-02-27] VITALS (104 sets, daily range): BP systolic 82–124; BP diastolic 40–73
[2021-02-27] MEDS: ACCU-CHEK COMFORT CURVE STRIP VI SCH ×5 (00:34→23:55)
[2021-02-27] MEDS: FREE WATER GT SCH ×5 (00:34→23:55)
[2021-02-27] MEDS: InsuLIN REG 1unit/0.01ml Soln (100units/ml) SC SCH ×5 (00:41→23:55)
[2021-02-27] MEDS: PHENYLEPHRINE IV 250 ML IV SCH ×3 (01:20→18:00)
[2021-02-27] MEDS: fentaNYL Drip 2500mCg/250mlNS 250 ML IV SCH ×3 (01:33→10:15)
[2021-02-27] MEDS: PROPOFOL 100 ML IV SCH (02:45)
[2021-02-27 05:36] LABS: Hematocrit 46.4 % (41.0-53.0); Hemoglobin 15.3 g/dL (13.5-17.5); Mean Corpuscular Hemoglobin 31.9 pg (28.0-32.0); Mean Corpuscular Hgb Conc. 33.1 g/dL (32.0-36.0); Mean Corpuscular Volume 96.3 fL (80.0-100.0); Red Blood Cells 4.81 10^6/uL (4.5-5.90); Red Cell Distribution Width 14.6 % (11.8-14.3)
[2021-02-27 05:44] LABS: Basophils % (manual) 0 (0.0-2.0); Blast Cells 0; Eosinophils % (manual) 0 (0-7); Lymphocytes % (manual) 0 (10.0-50.0); Myelocytes % 0; Promyelocytes % 0; Reactive Lymphocytes 0
[2021-02-27 05:48] LABS: Calcium 7.4 mg/dL (8.5-10.1)
[2021-02-27 05:51] LABS: BUN/Creatinine Ratio 37.4
[2021-02-27 06:06] LABS: Potassium 5.9 mmol/L (3.5-5.1)
[2021-02-27] MEDS: BUDESONIDE (INHALATION) 0.5 MG/2 ML NEB NEB SCH ×2 (06:11→20:43)
[2021-02-27] MEDS: ALBUTEROL SULF 2.5 MG/0.5ML(0.5%) NEB SOLN NEB PRN ×2 (06:11→20:43)
[2021-02-27] MEDS: IPRATROPIUM BROM 0.5 MG/2.5ML INH SOL NEB PRN ×2 (06:14→20:43)
[2021-02-27] MEDS: INSULIN LANTUS (GLARGINE) 1 /0.01ml (100units/ml) SC SCH (06:28)
[2021-02-27] MEDS ORDERED: SODIUM BICARBONATE 8.4% INJ 50ML SYRINGE IV ONE (06:45)
[2021-02-27] MEDS ORDERED: CALCIUM GLUC 1,000mg/50ml-NS 50 ML IV ONE (06:45)
[2021-02-27] MEDS ORDERED: SODIUM ZIRCONIUM CYCL 10 GM PAK PO ONE (06:45)
[2021-02-27] MEDS ORDERED: DEXTROSE (50%) 50ML SYRG IV ONE (06:45)
[2021-02-27] MEDS ORDERED: InsuLIN REG 1unit/0.01ml Soln (100units/ml) IV ONE (06:45)
[2021-02-27] MEDS: FINASTERIDE 5 MG TAB PO SCH (09:27)
[2021-02-27] MEDS: CLOPIDOGREL BISULFATE 75 MG TAB PO SCH (09:28)
[2021-02-27] MEDS ORDERED: LACTULOSE 20Gm/30ML SOLN PO SCH (10:00)
[2021-02-27] MEDS ORDERED: SODIUM CHLORIDE 0.9% 1,000 ML IV ONE (10:00)
[2021-02-27] MEDS: DexAMETHasone SOD PHOS 10MG/1ML VIAL INJ IV SCH (10:11)
[2021-02-27] MEDS: ASCORBIC ACID 1,000 MG TAB PO SCH (10:12)
[2021-02-27] MEDS: CHOLECALCIFEROL (VITD3) 2,000 UNIT CAP/TAB PO SCH (10:12)
[2021-02-27] MEDS: PANTOPRAZOLE 40 MG/10 ML VIAL INJ IV SCH (10:12)
[2021-02-27] MEDS: ENOXAPARIN SOD 40 MG/0.4 ML SYRINGE SC SCH (10:12)
[2021-02-27] MEDS: SODIUM CHLOR 0.9% PF (SALINE LOCK) 10ML VIAL/SYR IV SCH ×2 (10:12→22:00)
[2021-02-27] MEDS: TAMSULOSIN HYDROCHLORIDE 0.4 MG CAP PO SCH (10:12)
[2021-02-27] MEDS: ZINC SULFATE 220mg CAP or TAB PO SCH (10:12)
[2021-02-27 11:04] LABS: Band Neutrophils % (manual) 11; Metamyelocytes % 1; Monocytes % (manual) 1 (0-12)
[2021-02-27 13:59] LABS: BUN/Creatinine Ratio 35.3; Calcium 7.4 mg/dL (8.5-10.1)
[2021-02-27] MEDS: METOCLOPRAMIDE HCL 5MG/ml INJ 2ml VIAL IV SCH ×2 (14:00→22:00)
[2021-02-27] MEDS: ATRACURIUM BESYLATE 1,000 MG in D5W 5% 150 ML IV SCH (14:00)
[2021-02-27] MEDS: MIDAZOLAM DRIP 50 mg/50mL 50 ML IV SCH (14:00)
[2021-02-27 14:27] LABS: Potassium 5.4 mmol/L (3.5-5.1)
[2021-02-27] MEDS: NOREPINEPHRINE 8 MG/250ML KIT 250 ML IV SCH (16:45)
[2021-02-27] MEDS: LACTULOSE 20Gm/30ML SOLN PO SCH (22:00)
[2021-02-27] MEDS: ATORVASTATIN 20 MG TAB PO SCH (22:00)
[2021-02-28] VITALS (102 sets, daily range): BP systolic 65–202; BP diastolic 5–116
[2021-02-28] MEDS: PHENYLEPHRINE IV 250 ML IV SCH ×3 (02:20→19:00)
[2021-02-28] MEDS: MIDAZOLAM DRIP 50 mg/50mL 50 ML IV SCH ×2 (04:03→12:09)
[2021-02-28 04:53] LABS: Hematocrit 44.4 % (41.0-53.0); Hemoglobin 14.9 g/dL (13.5-17.5); Mean Corpuscular Hemoglobin 32.2 pg (28.0-32.0); Mean Corpuscular Hgb Conc. 33.6 g/dL (32.0-36.0); Mean Corpuscular Volume 95.8 fL (80.0-100.0); Red Blood Cells 4.63 10^6/uL (4.5-5.90); Red Cell Distribution Width 14.2 % (11.8-14.3); White Blood Cell 17.4 10^3/uL (4.4-10.8)
[2021-02-28 05:21] LABS: Basophils % (manual) 0 (0.0-2.0); Blast Cells 0; Calcium 7.3 mg/dL (8.5-10.1); Eosinophils % (manual) 0 (0-7); Metamyelocytes % 0; Myelocytes % 0; Potassium 4.9 mmol/L (3.5-5.1); Promyelocytes % 0; Reactive Lymphocytes 0
[2021-02-28] MEDS: IPRATROPIUM BROM 0.5 MG/2.5ML INH SOL NEB PRN ×2 (06:18→18:47)
[2021-02-28] MEDS: ALBUTEROL SULF 2.5 MG/0.5ML(0.5%) NEB SOLN NEB PRN ×2 (06:18→18:47)
[2021-02-28] MEDS: BUDESONIDE (INHALATION) 0.5 MG/2 ML NEB NEB SCH ×2 (06:18→18:47)
[2021-02-28] MEDS: ACCU-CHEK COMFORT CURVE STRIP VI SCH ×4 (06:19→23:55)
[2021-02-28] MEDS: InsuLIN REG 1unit/0.01ml Soln (100units/ml) SC SCH ×4 (06:19→23:56)
[2021-02-28] MEDS: FREE WATER GT SCH ×4 (06:20→23:55)
[2021-02-28] MEDS: LACTULOSE 20Gm/30ML SOLN PO SCH ×3 (06:20→21:51)
[2021-02-28] MEDS: METOCLOPRAMIDE HCL 5MG/ml INJ 2ml VIAL IV SCH ×3 (06:20→21:50)
[2021-02-28 06:53] LABS: Band Neutrophils % (manual) 30; Lymphocytes % (manual) 1 (10.0-50.0); Monocytes % (manual) 2 (0-12)
[2021-02-28] MEDS: INSULIN LANTUS (GLARGINE) 1 /0.01ml (100units/ml) SC SCH (07:00)
[2021-02-28] MEDS: PANTOPRAZOLE 40 MG/10 ML VIAL INJ IV SCH (09:44)
[2021-02-28] MEDS: CLOPIDOGREL BISULFATE 75 MG TAB PO SCH (09:44)
[2021-02-28] MEDS: ZINC SULFATE 220mg CAP or TAB PO SCH (09:44)
[2021-02-28] MEDS: DexAMETHasone SOD PHOS 10MG/1ML VIAL INJ IV SCH (09:44)
[2021-02-28] MEDS: TAMSULOSIN HYDROCHLORIDE 0.4 MG CAP PO SCH (09:44)
[2021-02-28] MEDS: CHOLECALCIFEROL (VITD3) 2,000 UNIT CAP/TAB PO SCH (09:45)
[2021-02-28] MEDS: FINASTERIDE 5 MG TAB PO SCH (09:45)
[2021-02-28] MEDS: ASCORBIC ACID 1,000 MG TAB PO SCH (09:45)
[2021-02-28] MEDS: ENOXAPARIN SOD 40 MG/0.4 ML SYRINGE SC SCH (09:46)
[2021-02-28] MEDS: SODIUM CHLOR 0.9% PF (SALINE LOCK) 10ML VIAL/SYR IV SCH ×2 (09:47→21:50)
[2021-02-28] MEDS: PROPOFOL 100 ML IV SCH (12:12)
[2021-02-28] MEDS: NOREPINEPHRINE 8 MG/250ML KIT 250 ML IV SCH (14:00)
[2021-02-28] MEDS: ATRACURIUM BESYLATE 1,000 MG in D5W 5% 150 ML IV SCH (14:00)
[2021-02-28] MEDS: fentaNYL Drip 2500mCg/250mlNS 250 ML IV SCH (15:40)
[2021-02-28] MEDS: ATORVASTATIN 20 MG TAB PO SCH (21:51)
[2021-03-01] VITALS (97 sets, daily range): BP systolic 72–134; BP diastolic 38–88
[2021-03-01] MEDS: PHENYLEPHRINE IV 250 ML IV SCH ×3 (03:20→20:00)
[2021-03-01 04:47] LABS: Albumin 1.9 g/dL (3.4-5.0); Calcium 7.3 mg/dL (8.5-10.1); Potassium 3.9 mmol/L (3.5-5.1)
[2021-03-01 04:53] LABS: BUN/Creatinine Ratio 50.8; Bilirubin, Total 0.8 mg/dL (0.2-1.0); Total Protein 4.8 g/dL (6.4-8.2)
[2021-03-01] MEDS: FREE WATER GT SCH ×4 (05:01→23:49)
[2021-03-01] MEDS: LACTULOSE 20Gm/30ML SOLN PO SCH ×3 (05:01→21:40)
[2021-03-01] MEDS: METOCLOPRAMIDE HCL 5MG/ml INJ 2ml VIAL IV SCH ×3 (05:01→21:39)
[2021-03-01 05:24] LABS: Hematocrit 42.9 % (41.0-53.0); Hemoglobin 14.6 g/dL (13.5-17.5); Mean Corpuscular Hemoglobin 32.1 pg (28.0-32.0); Mean Corpuscular Hgb Conc. 34.1 g/dL (32.0-36.0); Mean Corpuscular Volume 94.1 fL (80.0-100.0); Red Blood Cells 4.56 10^6/uL (4.5-5.90); Red Cell Distribution Width 13.9 % (11.8-14.3); White Blood Cell 14.4 10^3/uL (4.4-10.8)
[2021-03-01 05:27] LABS: Basophils % (manual) 0 (0.0-2.0); Blast Cells 0; Metamyelocytes % 0; Myelocytes % 0; Promyelocytes % 0; Reactive Lymphocytes 0
[2021-03-01] MEDS: ACCU-CHEK COMFORT CURVE STRIP VI SCH ×4 (05:38→23:49)
[2021-03-01] MEDS: InsuLIN REG 1unit/0.01ml Soln (100units/ml) SC SCH ×4 (05:39→23:49)
[2021-03-01 06:42] LABS: Band Neutrophils % (manual) 19; Eosinophils % (manual) 4 (0-7); Lymphocytes % (manual) 3 (10.0-50.0); Monocytes % (manual) 4 (0-12)
[2021-03-01] MEDS: INSULIN LANTUS (GLARGINE) 1 /0.01ml (100units/ml) SC SCH (06:42)
[2021-03-01] MEDS: IPRATROPIUM BROM 0.5 MG/2.5ML INH SOL NEB PRN ×2 (07:03→19:11)
[2021-03-01] MEDS: BUDESONIDE (INHALATION) 0.5 MG/2 ML NEB NEB SCH ×2 (07:03→19:11)
[2021-03-01] MEDS: ALBUTEROL SULF 2.5 MG/0.5ML(0.5%) NEB SOLN NEB PRN ×2 (07:03→19:11)
[2021-03-01] MEDS: fentaNYL Drip 2500mCg/250mlNS 250 ML IV SCH ×2 (07:57→15:58)
[2021-03-01] MEDS: PANTOPRAZOLE 40 MG/10 ML VIAL INJ IV SCH (08:57)
[2021-03-01] MEDS: ZINC SULFATE 220mg CAP or TAB PO SCH (08:57)
[2021-03-01] MEDS: CLOPIDOGREL BISULFATE 75 MG TAB PO SCH (08:57)
[2021-03-01] MEDS: ENOXAPARIN SOD 40 MG/0.4 ML SYRINGE SC SCH (08:57)
[2021-03-01] MEDS: FINASTERIDE 5 MG TAB PO SCH (08:57)
[2021-03-01] MEDS: ASCORBIC ACID 1,000 MG TAB PO SCH (08:58)
[2021-03-01] MEDS: TAMSULOSIN HYDROCHLORIDE 0.4 MG CAP PO SCH (08:58)
[2021-03-01] MEDS: DexAMETHasone SOD PHOS 10MG/1ML VIAL INJ IV SCH (08:58)
[2021-03-01] MEDS: SODIUM CHLOR 0.9% PF (SALINE LOCK) 10ML VIAL/SYR IV SCH ×2 (08:59→21:40)
[2021-03-01] MEDS: CHOLECALCIFEROL (VITD3) 2,000 UNIT CAP/TAB PO SCH (09:00)
[2021-03-01] MEDS: MIDAZOLAM DRIP 50 mg/50mL 50 ML IV SCH ×3 (10:32→17:37)
[2021-03-01] MEDS: PROPOFOL 100 ML IV SCH ×4 (10:32→17:33)
[2021-03-01] MEDS: ATRACURIUM BESYLATE 1,000 MG in D5W 5% 150 ML IV SCH ×2 (14:00→23:02)
[2021-03-01] MEDS: NOREPINEPHRINE 8 MG/250ML KIT 250 ML IV SCH (15:58)
[2021-03-01] MEDS: ATORVASTATIN 20 MG TAB PO SCH (21:40)
[2021-03-02] VITALS (106 sets, daily range): BP systolic 87–127; BP diastolic 47–72
[2021-03-02] MEDS: PHENYLEPHRINE IV 250 ML IV SCH ×3 (04:20→19:58)
[2021-03-02] MEDS: ACCU-CHEK COMFORT CURVE STRIP VI SCH ×4 (05:40→23:54)
[2021-03-02] MEDS: InsuLIN REG 1unit/0.01ml Soln (100units/ml) SC SCH ×4 (05:41→23:55)
[2021-03-02] MEDS: FREE WATER GT SCH ×4 (05:45→23:54)
[2021-03-02] MEDS: METOCLOPRAMIDE HCL 5MG/ml INJ 2ml VIAL IV SCH ×3 (05:46→22:04)
[2021-03-02] MEDS: LACTULOSE 20Gm/30ML SOLN PO SCH (05:46)
[2021-03-02 06:12] LABS: Basophils # (auto) 0 10 ^3/uL (0-0.2); Basophils % (auto) 0.2 % (0.0-2.0); Eosinophils # (auto) 0.5 10 ^3/uL (0-0.8); Eosinophils % (auto) 3.1 % (0.0-7.0); Hematocrit 43.2 % (41.0-53.0); Hemoglobin 14.6 g/dL (13.5-17.5); Lymphocytes # (auto) 0.4 10 ^3/uL (0.4-5.4); Lymphocytes % (auto) 2.3 % (10.0-50.0); Mean Corpuscular Hemoglobin 32.7 pg (28.0-32.0); Mean Corpuscular Hgb Conc. 33.9 g/dL (32.0-36.0); Mean Corpuscular Volume 96.4 fL (80.0-100.0); Monocytes # (auto) 0.3 10 ^3/uL (0-1.3); Monocytes % (auto) 2.2 % (0.0-12.0); Neutrophils # (auto) 14.2 10 ^3/uL (1.6-8.6); Neutrophils % (auto) 92.2 % (37.0-80.0); Nucleated Red Blood Cells % 0.1 %; Red Blood Cells 4.48 10^6/uL (4.5-5.90); Red Cell Distribution Width 14.6 % (11.8-14.3); White Blood Cell 15.3 10^3/uL (4.4-10.8)
[2021-03-02 06:38] LABS: BUN/Creatinine Ratio 43.5; Calcium 6.8 mg/dL (8.5-10.1)
[2021-03-02] MEDS: INSULIN LANTUS (GLARGINE) 1 /0.01ml (100units/ml) SC SCH (06:46)
[2021-03-02] MEDS: ENOXAPARIN SOD 40 MG/0.4 ML SYRINGE SC SCH (09:22)
[2021-03-02] MEDS: PANTOPRAZOLE 40 MG/10 ML VIAL INJ IV SCH (09:22)
[2021-03-02] MEDS: ASCORBIC ACID 1,000 MG TAB PO SCH (09:23)
[2021-03-02] MEDS: ZINC SULFATE 220mg CAP or TAB PO SCH (09:23)
[2021-03-02] MEDS: DexAMETHasone SOD PHOS 10MG/1ML VIAL INJ IV SCH (09:23)
[2021-03-02] MEDS: CLOPIDOGREL BISULFATE 75 MG TAB PO SCH (09:23)
[2021-03-02] MEDS: CHOLECALCIFEROL (VITD3) 2,000 UNIT CAP/TAB PO SCH (09:24)
[2021-03-02] MEDS: TAMSULOSIN HYDROCHLORIDE 0.4 MG CAP PO SCH (09:24)
[2021-03-02] MEDS: SODIUM CHLOR 0.9% PF (SALINE LOCK) 10ML VIAL/SYR IV SCH ×2 (09:24→22:04)
[2021-03-02] MEDS: FINASTERIDE 5 MG TAB PO SCH (09:24)
[2021-03-02] MEDS: BUDESONIDE (INHALATION) 0.5 MG/2 ML NEB NEB SCH ×2 (10:00→23:05)
[2021-03-02] MEDS: PROPOFOL 100 ML IV SCH ×3 (10:54→18:25)
[2021-03-02] MEDS: NOREPINEPHRINE 8 MG/250ML KIT 250 ML IV SCH (11:03)
[2021-03-02] MEDS ORDERED: FUROSEMIDE 20 MG/2 ML VIAL IV ONE (11:30)
[2021-03-02] MEDS: MIDAZOLAM DRIP 50 mg/50mL 50 ML IV SCH ×2 (13:24→18:30)
[2021-03-02] MEDS: fentaNYL Drip 2500mCg/250mlNS 250 ML IV SCH (14:11)
[2021-03-02] MEDS: ATORVASTATIN 20 MG TAB PO SCH (22:04)
[2021-03-02] MEDS: ALBUTEROL SULF 2.5 MG/0.5ML(0.5%) NEB SOLN NEB PRN (23:05)
[2021-03-03] VITALS (105 sets, daily range): BP systolic 84–148; BP diastolic 52–90
[2021-03-03] MEDS: PHENYLEPHRINE IV 250 ML IV SCH ×2 (05:05→13:40)
[2021-03-03] MEDS: FREE WATER GT SCH ×4 (05:17→23:38)
[2021-03-03] MEDS: METOCLOPRAMIDE HCL 5MG/ml INJ 2ml VIAL IV SCH ×3 (05:17→22:07)
[2021-03-03] MEDS: ACCU-CHEK COMFORT CURVE STRIP VI SCH ×4 (05:17→23:38)
[2021-03-03] MEDS: InsuLIN REG 1unit/0.01ml Soln (100units/ml) SC SCH ×4 (05:18→23:39)
[2021-03-03 05:57] LABS: Potassium 4.9 mmol/L (3.5-5.1)
[2021-03-03 05:59] LABS: Basophils # (auto) 0 10 ^3/uL (0-0.2); Basophils % (auto) 0.1 % (0.0-2.0); Eosinophils # (auto) 0.2 10 ^3/uL (0-0.8); Eosinophils % (auto) 1.3 % (0.0-7.0); Hematocrit 45.2 % (41.0-53.0); Hemoglobin 15.3 g/dL (13.5-17.5); Lymphocytes # (auto) 0.3 10 ^3/uL (0.4-5.4); Lymphocytes % (auto) 1.8 % (10.0-50.0); Mean Corpuscular Hemoglobin 32.6 pg (28.0-32.0); Mean Corpuscular Hgb Conc. 33.9 g/dL (32.0-36.0); Monocytes # (auto) 0.4 10 ^3/uL (0-1.3); Monocytes % (auto) 2.4 % (0.0-12.0); Neutrophils # (auto) 17.1 10 ^3/uL (1.6-8.6); Neutrophils % (auto) 94.4 % (37.0-80.0); Nucleated Red Blood Cells % 0.3 %; Red Cell Distribution Width 14.2 % (11.8-14.3); White Blood Cell 18.2 10^3/uL (4.4-10.8)
[2021-03-03 06:02] LABS: BUN/Creatinine Ratio 37.8; Calcium 7.5 mg/dL (8.5-10.1)
[2021-03-03] MEDS: INSULIN LANTUS (GLARGINE) 1 /0.01ml (100units/ml) SC SCH (06:12)
[2021-03-03] MEDS: IPRATROPIUM BROM 0.5 MG/2.5ML INH SOL NEB PRN ×3 (07:17→19:09)
[2021-03-03] MEDS: BUDESONIDE (INHALATION) 0.5 MG/2 ML NEB NEB SCH ×2 (07:17→19:09)
[2021-03-03] MEDS: ALBUTEROL SULF 2.5 MG/0.5ML(0.5%) NEB SOLN NEB PRN ×3 (07:17→19:09)
[2021-03-03] MEDS: ENOXAPARIN SOD 40 MG/0.4 ML SYRINGE SC SCH (09:11)
[2021-03-03] MEDS: ZINC SULFATE 220mg CAP or TAB PO SCH (09:11)
[2021-03-03] MEDS: FUROSEMIDE 20 MG/2 ML VIAL IV SCH (09:11)
[2021-03-03] MEDS: LACTULOSE 20Gm/30ML SOLN PO SCH (09:11)
[2021-03-03] MEDS: DexAMETHasone SOD PHOS 10MG/1ML VIAL INJ IV SCH (09:12)
[2021-03-03] MEDS: PANTOPRAZOLE 40 MG/10 ML VIAL INJ IV SCH (09:12)
[2021-03-03] MEDS: FINASTERIDE 5 MG TAB PO SCH (09:12)
[2021-03-03] MEDS: CHOLECALCIFEROL (VITD3) 2,000 UNIT CAP/TAB PO SCH (09:12)
[2021-03-03] MEDS: TAMSULOSIN HYDROCHLORIDE 0.4 MG CAP PO SCH (09:12)
[2021-03-03] MEDS: CLOPIDOGREL BISULFATE 75 MG TAB PO SCH (09:13)
[2021-03-03] MEDS: SODIUM CHLOR 0.9% PF (SALINE LOCK) 10ML VIAL/SYR IV SCH ×2 (09:13→22:07)
[2021-03-03] MEDS: ASCORBIC ACID 1,000 MG TAB PO SCH (09:13)
[2021-03-03] MEDS: MIDAZOLAM DRIP 50 mg/50mL 50 ML IV SCH ×4 (09:29→18:10)
[2021-03-03] MEDS: PROPOFOL 100 ML IV SCH ×3 (09:30→18:10)
[2021-03-03] MEDS: fentaNYL Drip 2500mCg/250mlNS 250 ML IV SCH (12:20)
[2021-03-03] MEDS: NOREPINEPHRINE 8 MG/250ML KIT 250 ML IV SCH ×2 (12:21→18:10)
[2021-03-03] MEDS: ATRACURIUM BESYLATE 1,000 MG in D5W 5% 150 ML IV SCH (14:00)
[2021-03-03] MEDS: MEROPENEM 1GM IVPB 100 ML IV SCH ×2 (14:09→22:07)
[2021-03-03] MEDS ORDERED: TPN PER PHARMACY 0 ML IV SCH (15:45)
[2021-03-03] MEDS: PHENYLEPHRINE INJ 80 MG in SODIUM CHL 0.9% 242 ML IV SCH ×2 (17:45→20:30)
[2021-03-03] MEDS: LINEZOLID 600MG/300ML 300 ML IV SCH (17:57)
[2021-03-03] MEDS ORDERED: AMINO ACID INFUSION IN D10W 1,000 ML IV NR (20:00)
[2021-03-03] MEDS: ATORVASTATIN 20 MG TAB PO SCH (22:08)
[2021-03-04] VITALS (97 sets, daily range): BP systolic 72–140; BP diastolic 38–84
[2021-03-04 05:40] LABS: Hematocrit 42.5 % (41.0-53.0); Hemoglobin 14.5 g/dL (13.5-17.5); Mean Corpuscular Hemoglobin 32.5 pg (28.0-32.0); Mean Corpuscular Hgb Conc. 34.1 g/dL (32.0-36.0); Mean Corpuscular Volume 95.2 fL (80.0-100.0); Red Blood Cells 4.47 10^6/uL (4.5-5.90); Red Cell Distribution Width 14.5 % (11.8-14.3); White Blood Cell 16.7 10^3/uL (4.4-10.8)
[2021-03-04 05:43] LABS: Basophils % (manual) 0 (0.0-2.0); Blast Cells 0; Myelocytes % 0; Promyelocytes % 0
[2021-03-04] MEDS: MEROPENEM 1GM IVPB 100 ML IV SCH ×3 (06:00→22:08)
[2021-03-04 06:02] LABS: Potassium 3.9 mmol/L (3.5-5.1)
[2021-03-04] MEDS: FREE WATER GT SCH ×3 (06:02→17:55)
[2021-03-04] MEDS: METOCLOPRAMIDE HCL 5MG/ml INJ 2ml VIAL IV SCH ×3 (06:03→22:09)
[2021-03-04] MEDS: LINEZOLID 600MG/300ML 300 ML IV SCH ×2 (06:03→18:03)
[2021-03-04] MEDS: ACCU-CHEK COMFORT CURVE STRIP VI SCH ×3 (06:03→17:55)
[2021-03-04 06:09] LABS: Albumin 1.8 g/dL (3.4-5.0); BUN/Creatinine Ratio 40.3; Bilirubin, Total 0.6 mg/dL (0.2-1.0); Calcium 7.6 mg/dL (8.5-10.1); Magnesium 2.4 mg/dL (1.6-2.6); Pre Albumin 17.7 mg/dL (20.0-40.0); Total Protein 5.4 g/dL (6.4-8.2)
[2021-03-04] MEDS: InsuLIN REG 1unit/0.01ml Soln (100units/ml) SC SCH ×3 (06:10→17:55)
[2021-03-04] MEDS: INSULIN LANTUS (GLARGINE) 1 /0.01ml (100units/ml) SC SCH (06:24)
[2021-03-04 06:27] LABS: Phosphorus 0.8 mg/dL (2.5-4.90)
[2021-03-04 06:45] LABS: Band Neutrophils % (manual) 31; Eosinophils % (manual) 2 (0-7); Lymphocytes % (manual) 1 (10.0-50.0); Metamyelocytes % 1; Monocytes % (manual) 5 (0-12); Reactive Lymphocytes 1
[2021-03-04] MEDS: BUDESONIDE (INHALATION) 0.5 MG/2 ML NEB NEB SCH ×2 (07:08→22:59)
[2021-03-04] MEDS: ALBUTEROL SULF 2.5 MG/0.5ML(0.5%) NEB SOLN NEB PRN ×2 (07:08→22:59)
[2021-03-04] MEDS: IPRATROPIUM BROM 0.5 MG/2.5ML INH SOL NEB PRN ×2 (07:08→22:59)
[2021-03-04] MEDS ORDERED: SODIUM PHOSPHATES 20 MEQ in SODIUM CHL 0.9% 100 ML IV ONE (08:00)
[2021-03-04] MEDS: ASCORBIC ACID 1,000 MG TAB PO SCH (09:27)
[2021-03-04] MEDS: FINASTERIDE 5 MG TAB PO SCH (09:27)
[2021-03-04] MEDS: TAMSULOSIN HYDROCHLORIDE 0.4 MG CAP PO SCH (09:27)
[2021-03-04] MEDS: PANTOPRAZOLE 40 MG/10 ML VIAL INJ IV SCH (09:27)
[2021-03-04] MEDS: DexAMETHasone SOD PHOS 10MG/1ML VIAL INJ IV SCH (09:27)
[2021-03-04] MEDS: CLOPIDOGREL BISULFATE 75 MG TAB PO SCH (09:27)
[2021-03-04] MEDS: LACTULOSE 20Gm/30ML SOLN PO SCH (09:27)
[2021-03-04] MEDS: ENOXAPARIN SOD 40 MG/0.4 ML SYRINGE SC SCH (09:28)
[2021-03-04] MEDS: FUROSEMIDE 20 MG/2 ML VIAL IV SCH (09:28)
[2021-03-04] MEDS: ZINC SULFATE 220mg CAP or TAB PO SCH (09:28)
[2021-03-04] MEDS: CHOLECALCIFEROL (VITD3) 2,000 UNIT CAP/TAB PO SCH (09:28)
[2021-03-04] MEDS: PROPOFOL 100 ML IV SCH ×4 (09:48→21:00)
[2021-03-04] MEDS ORDERED: SODIUM ZIRCONIUM CYCL 10 GM PAK PO PRN (10:00)
[2021-03-04] MEDS: SODIUM CHLOR 0.9% PF (SALINE LOCK) 10ML VIAL/SYR IV SCH ×2 (10:15→22:09)
[2021-03-04] MEDS: PHENYLEPHRINE INJ 80 MG in SODIUM CHL 0.9% 242 ML IV SCH (10:32)
[2021-03-04] MEDS: MIDAZOLAM DRIP 50 mg/50mL 50 ML IV SCH ×4 (10:33→21:00)
[2021-03-04] MEDS ORDERED: FLUCONAZOLE 200MG/100ML 100 ML IV ONE (11:00)
[2021-03-04] MEDS: fentaNYL Drip 2500mCg/250mlNS 250 ML IV SCH ×2 (11:35→22:06)
[2021-03-04] MEDS: ATRACURIUM BESYLATE 1,000 MG in D5W 5% 150 ML IV SCH (14:00)
[2021-03-04] MEDS ORDERED: POTASSIUM PHOSP 26.4MEQ(18MMOL) IN NS 100 ML IV ONE (14:00)
[2021-03-04] MEDS: TPN PER PHARMACY IV NR ×7 (19:58)
[2021-03-04] MEDS: ATORVASTATIN 20 MG TAB PO SCH (22:09)
[2021-03-05] VITALS (101 sets, daily range): BP systolic 70–117; BP diastolic 37–70
[2021-03-05] MEDS: PROPOFOL 100 ML IV SCH ×3 (02:00→21:58)
[2021-03-05] MEDS: PHENYLEPHRINE INJ 80 MG in SODIUM CHL 0.9% 242 ML IV SCH (04:20)
[2021-03-05] MEDS: fentaNYL Drip 2500mCg/250mlNS 250 ML IV SCH (05:10)
[2021-03-05] MEDS: MEROPENEM 1GM IVPB 100 ML IV SCH ×2 (05:52→15:20)
[2021-03-05] MEDS: FREE WATER GT SCH ×2 (05:52)
[2021-03-05] MEDS: LINEZOLID 600MG/300ML 300 ML IV SCH ×2 (05:52→19:16)
[2021-03-05] MEDS: METOCLOPRAMIDE HCL 5MG/ml INJ 2ml VIAL IV SCH ×2 (05:52→15:20)
[2021-03-05] MEDS: ACCU-CHEK COMFORT CURVE STRIP VI SCH ×4 (06:23→18:36)
[2021-03-05] MEDS: InsuLIN REG 1unit/0.01ml Soln (100units/ml) SC SCH ×4 (06:24→18:36)
[2021-03-05] MEDS: FUROSEMIDE 20 MG/2 ML VIAL IV SCH (08:25)
[2021-03-05] MEDS: PANTOPRAZOLE 40 MG/10 ML VIAL INJ IV SCH (08:26)
[2021-03-05] MEDS: ZINC SULFATE 220mg CAP or TAB PO SCH (08:26)
[2021-03-05] MEDS: LACTULOSE 20Gm/30ML SOLN PO SCH (08:26)
[2021-03-05] MEDS: SODIUM CHLOR 0.9% PF (SALINE LOCK) 10ML VIAL/SYR IV SCH (08:26)
[2021-03-05] MEDS: TAMSULOSIN HYDROCHLORIDE 0.4 MG CAP PO SCH (08:27)
[2021-03-05] MEDS: CLOPIDOGREL BISULFATE 75 MG TAB PO SCH (08:27)
[2021-03-05] MEDS: FINASTERIDE 5 MG TAB PO SCH (08:27)
[2021-03-05] MEDS: ASCORBIC ACID 1,000 MG TAB PO SCH (08:28)
[2021-03-05] MEDS: CHOLECALCIFEROL (VITD3) 2,000 UNIT CAP/TAB PO SCH (08:28)
[2021-03-05] MEDS: ENOXAPARIN SOD 40 MG/0.4 ML SYRINGE SC SCH (08:29)
[2021-03-05] MEDS: INSULIN LANTUS (GLARGINE) 1 /0.01ml (100units/ml) SC SCH (10:18)
[2021-03-05 10:22] LABS: Basophils # (auto) 0 10 ^3/uL (0-0.2); Basophils % (auto) 0.2 % (0.0-2.0); Eosinophils # (auto) 0.3 10 ^3/uL (0-0.8); Eosinophils % (auto) 1.8 % (0.0-7.0); Hematocrit 40.4 % (41.0-53.0); Hemoglobin 13.9 g/dL (13.5-17.5); Lymphocytes # (auto) 0.3 10 ^3/uL (0.4-5.4); Lymphocytes % (auto) 2.2 % (10.0-50.0); Mean Corpuscular Hemoglobin 33.2 pg (28.0-32.0); Mean Corpuscular Hgb Conc. 34.5 g/dL (32.0-36.0); Mean Corpuscular Volume 96.3 fL (80.0-100.0); Monocytes # (auto) 0.3 10 ^3/uL (0-1.3); Monocytes % (auto) 2.3 % (0.0-12.0); Neutrophils # (auto) 13.9 10 ^3/uL (1.6-8.6); Neutrophils % (auto) 93.5 % (37.0-80.0); Red Cell Distribution Width 14.7 % (11.8-14.3); White Blood Cell 14.9 10^3/uL (4.4-10.8)
[2021-03-05 10:32] LABS: Albumin 1.5 g/dL (3.4-5.0); Calcium 6.4 mg/dL (8.5-10.1); Magnesium 2.1 mg/dL (1.6-2.6); Potassium 3.9 mmol/L (3.5-5.1)
[2021-03-05 10:35] LABS: Bilirubin, Total 0.7 mg/dL (0.2-1.0); Phosphorus 2.4 mg/dL (2.5-4.90); Total Protein 5.1 g/dL (6.4-8.2)
[2021-03-05 10:38] LABS: BUN/Creatinine Ratio 36.5
[2021-03-05] MEDS ORDERED: ALBUMIN 25% 100 ML IV ONE (12:00)
[2021-03-05] MEDS: MIDAZOLAM DRIP 50 mg/50mL 50 ML IV SCH ×3 (12:38→21:59)
[2021-03-05] MEDS ORDERED: FUROSEMIDE 40 MG/4 ML VIAL IV ONE (13:15)
[2021-03-05] MEDS: NOREPINEPHRINE 8 MG/250ML KIT 250 ML IV SCH (14:00)
[2021-03-05] MEDS: ATRACURIUM BESYLATE 1,000 MG in D5W 5% 150 ML IV SCH (14:00)
[2021-03-05] MEDS ORDERED: CALCIUM GLUC 4.65meq/50ml D5AE 50 ML IV ONE (14:00)
[2021-03-05] MEDS: IPRATROPIUM BROM 0.5 MG/2.5ML INH SOL NEB PRN (18:54)
[2021-03-05] MEDS: BUDESONIDE (INHALATION) 0.5 MG/2 ML NEB NEB SCH (18:55)
[2021-03-05] MEDS: ALBUTEROL SULF 2.5 MG/0.5ML(0.5%) NEB SOLN NEB PRN (18:55)
[2021-03-05] MEDS: ACETAMINOPHEN 500 MG TAB PO PRN (19:34)
[2021-03-05] MEDS: TPN PER PHARMACY IV NR ×7 (19:46)
[2021-03-05] MEDS ORDERED: TPN PER PHARMACY IV NR ×11 (20:00)
[2021-03-06] VITALS (99 sets, daily range): BP systolic 54–118; BP diastolic 45–72
[2021-03-06] MEDS: MEROPENEM 1GM IVPB 100 ML IV SCH ×4 (00:10→22:39)
[2021-03-06] MEDS: METOCLOPRAMIDE HCL 5MG/ml INJ 2ml VIAL IV SCH ×4 (00:10→22:39)
[2021-03-06] MEDS: ATORVASTATIN 20 MG TAB PO SCH ×2 (00:11→22:40)
[2021-03-06] MEDS: SODIUM CHLOR 0.9% PF (SALINE LOCK) 10ML VIAL/SYR IV SCH ×3 (00:11→22:39)
[2021-03-06] MEDS: INSULIN LANTUS (GLARGINE) 1 /0.01ml (100units/ml) SC SCH ×3 (00:11→22:40)
[2021-03-06] MEDS: InsuLIN REG 1unit/0.01ml Soln (100units/ml) SC SCH ×4 (00:12→17:58)
[2021-03-06] MEDS: ACCU-CHEK COMFORT CURVE STRIP VI SCH ×4 (00:12→18:00)
[2021-03-06] MEDS: ATRACURIUM BESYLATE 1,000 MG in D5W 5% 150 ML IV SCH ×2 (00:14→20:33)
[2021-03-06] MEDS: MIDAZOLAM DRIP 50 mg/50mL 50 ML IV SCH ×4 (02:38→20:30)
[2021-03-06] MEDS: PHENYLEPHRINE INJ 80 MG in SODIUM CHL 0.9% 242 ML IV SCH ×3 (05:37→21:22)
[2021-03-06 06:29] LABS: Albumin 1.6 g/dL (3.4-5.0); Calcium 6.2 mg/dL (8.5-10.1); Potassium 4.2 mmol/L (3.5-5.1)
[2021-03-06 06:33] LABS: Bilirubin, Total 0.7 mg/dL (0.2-1.0); Phosphorus 3.3 mg/dL (2.5-4.90)
[2021-03-06] MEDS: LINEZOLID 600MG/300ML 300 ML IV SCH ×2 (06:49→17:59)
[2021-03-06 06:50] LABS: BUN/Creatinine Ratio 41.9
[2021-03-06] MEDS: fentaNYL Drip 2500mCg/250mlNS 250 ML IV SCH ×3 (06:50→22:30)
[2021-03-06] MEDS: PROPOFOL 100 ML IV SCH ×2 (08:45→20:30)
[2021-03-06] MEDS: PANTOPRAZOLE 40 MG/10 ML VIAL INJ IV SCH (09:26)
[2021-03-06] MEDS: LACTULOSE 20Gm/30ML SOLN PO SCH (09:26)
[2021-03-06] MEDS: FUROSEMIDE 20 MG/2 ML VIAL IV SCH (09:26)
[2021-03-06] MEDS: CHOLECALCIFEROL (VITD3) 2,000 UNIT CAP/TAB PO SCH (09:27)
[2021-03-06] MEDS: FINASTERIDE 5 MG TAB PO SCH (09:29)
[2021-03-06] MEDS: ASCORBIC ACID 1,000 MG TAB PO SCH (09:29)
[2021-03-06] MEDS: ZINC SULFATE 220mg CAP or TAB PO SCH (09:29)
[2021-03-06] MEDS: CLOPIDOGREL BISULFATE 75 MG TAB PO SCH (10:00)
[2021-03-06] MEDS: ENOXAPARIN SOD 40 MG/0.4 ML SYRINGE SC SCH (10:00)
[2021-03-06 10:17] LABS: Basophils # (auto) 0.1 10 ^3/uL (0-0.2); Basophils % (auto) 0.4 % (0.0-2.0); Eosinophils # (auto) 0.8 10 ^3/uL (0-0.8); Eosinophils % (auto) 5.7 % (0.0-7.0); Hematocrit 46.9 % (41.0-53.0); Hemoglobin 15.3 g/dL (13.5-17.5); Lymphocytes # (auto) 0.6 10 ^3/uL (0.4-5.4); Mean Corpuscular Hemoglobin 32.1 pg (28.0-32.0); Mean Corpuscular Hgb Conc. 32.5 g/dL (32.0-36.0); Mean Corpuscular Volume 98.8 fL (80.0-100.0); Monocytes # (auto) 0.4 10 ^3/uL (0-1.3); Monocytes % (auto) 2.7 % (0.0-12.0); Neutrophils # (auto) 12.6 10 ^3/uL (1.6-8.6); Neutrophils % (auto) 87.2 % (37.0-80.0); Nucleated Red Blood Cells % 0.7 %; Red Blood Cells 4.75 10^6/uL (4.5-5.90); Red Cell Distribution Width 15.6 % (11.8-14.3); White Blood Cell 14.4 10^3/uL (4.4-10.8)
[2021-03-06] MEDS ORDERED: CALCIUM GLUC 1,000mg/50ml-NS 50 ML IV ONE (12:45)
[2021-03-06] MEDS: NOREPINEPHRINE 8 MG/250ML KIT 250 ML IV SCH (14:00)
[2021-03-06] MEDS: CLOTRIMAZOLE 1 % CREAM 15GM TOP SCH ×2 (17:10→22:41)
[2021-03-06] MEDS: BUDESONIDE (INHALATION) 0.5 MG/2 ML NEB NEB SCH (18:49)
[2021-03-06] MEDS: ALBUTEROL SULF 2.5 MG/0.5ML(0.5%) NEB SOLN NEB PRN (18:49)
[2021-03-06] MEDS: IPRATROPIUM BROM 0.5 MG/2.5ML INH SOL NEB PRN (18:49)
[2021-03-06 19:16] LABS: Basophils # (auto) 0.1 10 ^3/uL (0-0.2); Basophils % (auto) 0.4 % (0.0-2.0); Eosinophils # (auto) 1.1 10 ^3/uL (0-0.8); Eosinophils % (auto) 9.1 % (0.0-7.0); Hematocrit 44.9 % (41.0-53.0); Hemoglobin 14.9 g/dL (13.5-17.5); Lymphocytes # (auto) 0.3 10 ^3/uL (0.4-5.4); Lymphocytes % (auto) 2.4 % (10.0-50.0); Mean Corpuscular Hemoglobin 32.1 pg (28.0-32.0); Mean Corpuscular Hgb Conc. 33.3 g/dL (32.0-36.0); Mean Corpuscular Volume 96.5 fL (80.0-100.0); Monocytes # (auto) 0.2 10 ^3/uL (0-1.3); Monocytes % (auto) 1.5 % (0.0-12.0); Neutrophils # (auto) 10.3 10 ^3/uL (1.6-8.6); Neutrophils % (auto) 86.6 % (37.0-80.0); Nucleated Red Blood Cells % 0.3 %; Red Blood Cells 4.65 10^6/uL (4.5-5.90); Red Cell Distribution Width 15.3 % (11.8-14.3); White Blood Cell 11.9 10^3/uL (4.4-10.8)
[2021-03-06] MEDS ORDERED: TPN PER PHARMACY IV NR ×13 (20:00)
[2021-03-07] VITALS (101 sets, daily range): BP systolic 83–123; BP diastolic 47–66
[2021-03-07] MEDS: PROPOFOL 100 ML IV SCH ×5 (00:58→23:07)
[2021-03-07] MEDS: MIDAZOLAM DRIP 50 mg/50mL 50 ML IV SCH ×5 (00:59→23:08)
[2021-03-07] MEDS: NOREPINEPHRINE 8 MG/250ML KIT 250 ML IV SCH ×3 (04:37→19:15)
[2021-03-07] MEDS: PHENYLEPHRINE INJ 80 MG in SODIUM CHL 0.9% 242 ML IV SCH ×3 (04:38→19:20)
[2021-03-07] MEDS: InsuLIN REG 1unit/0.01ml Soln (100units/ml) SC SCH ×4 (05:44→17:29)
[2021-03-07] MEDS: ACCU-CHEK COMFORT CURVE STRIP VI SCH ×4 (05:46→17:29)
[2021-03-07] MEDS: METOCLOPRAMIDE HCL 5MG/ml INJ 2ml VIAL IV SCH ×3 (05:47→22:02)
[2021-03-07] MEDS: MEROPENEM 1GM IVPB 100 ML IV SCH ×3 (05:47→22:02)
[2021-03-07] MEDS: LINEZOLID 600MG/300ML 300 ML IV SCH ×2 (05:47→17:53)
[2021-03-07] MEDS: ALBUTEROL SULF 2.5 MG/0.5ML(0.5%) NEB SOLN NEB PRN ×2 (06:05→19:00)
[2021-03-07] MEDS: IPRATROPIUM BROM 0.5 MG/2.5ML INH SOL NEB PRN ×2 (06:05→19:00)
[2021-03-07] MEDS: BUDESONIDE (INHALATION) 0.5 MG/2 ML NEB NEB SCH ×2 (06:05→19:00)
[2021-03-07 06:40] LABS: Albumin 1.3 g/dL (3.4-5.0); Calcium 6.6 mg/dL (8.5-10.1); Potassium 3.9 mmol/L (3.5-5.1)
[2021-03-07 06:44] LABS: BUN/Creatinine Ratio 32.7; Bilirubin, Total 0.9 mg/dL (0.2-1.0); Phosphorus 3.6 mg/dL (2.5-4.90); Total Protein 4.6 g/dL (6.4-8.2)
[2021-03-07 08:55] LABS: Hemoglobin 13.7 g/dL (13.5-17.5); Lymphocytes # (auto) 0.4 10 ^3/uL (0.4-5.4); Lymphocytes % (auto) 2.8 % (10.0-50.0); Mean Corpuscular Hemoglobin 33.2 pg (28.0-32.0); Monocytes # (auto) 0.1 10 ^3/uL (0-1.3); Red Cell Distribution Width 17.1 % (11.8-14.3)
[2021-03-07 08:57] LABS: Basophils # (auto) 0 10 ^3/uL (0-0.2); Basophils % (auto) 0.3 % (0.0-2.0); Eosinophils # (auto) 1.3 10 ^3/uL (0-0.8); Eosinophils % (auto) 8.1 % (0.0-7.0); Mean Corpuscular Hgb Conc. 31.7 g/dL (32.0-36.0); Mean Corpuscular Volume 104.4 fL (80.0-100.0); Monocytes % (auto) 0.8 % (0.0-12.0); Neutrophils # (auto) 13.8 10 ^3/uL (1.6-8.6); Nucleated Red Blood Cells % 0.6 %; Red Blood Cells 4.12 10^6/uL (4.5-5.90); White Blood Cell 15.6 10^3/uL (4.4-10.8)
[2021-03-07] MEDS: FINASTERIDE 5 MG TAB PO SCH (10:00)
[2021-03-07] MEDS: SODIUM CHLOR 0.9% PF (SALINE LOCK) 10ML VIAL/SYR IV SCH ×2 (10:00→22:04)
[2021-03-07] MEDS: INSULIN LANTUS (GLARGINE) 1 /0.01ml (100units/ml) SC SCH ×2 (10:00→22:00)
[2021-03-07] MEDS: PANTOPRAZOLE 40 MG/10 ML VIAL INJ IV SCH (10:55)
[2021-03-07] MEDS: ZINC SULFATE 220mg CAP or TAB PO SCH (10:55)
[2021-03-07] MEDS: CLOPIDOGREL BISULFATE 75 MG TAB PO SCH (10:55)
[2021-03-07] MEDS: ENOXAPARIN SOD 40 MG/0.4 ML SYRINGE SC SCH (10:55)
[2021-03-07] MEDS: ASCORBIC ACID 1,000 MG TAB PO SCH (10:55)
[2021-03-07] MEDS: LACTULOSE 20Gm/30ML SOLN PO SCH (10:55)
[2021-03-07] MEDS: CHOLECALCIFEROL (VITD3) 2,000 UNIT CAP/TAB PO SCH (10:56)
[2021-03-07] MEDS: CLOTRIMAZOLE 1 % CREAM 15GM TOP SCH ×2 (10:58→22:06)
[2021-03-07] MEDS: FUROSEMIDE 20 MG/2 ML VIAL IV SCH (11:02)
[2021-03-07] MEDS: fentaNYL Drip 2500mCg/250mlNS 250 ML IV SCH ×2 (14:55→23:05)
[2021-03-07] MEDS: VASOPRESSIN 50 UNITS in D5W 5% 247.5 ML IV SCH (17:03)
[2021-03-07] MEDS ORDERED: TPN PER PHARMACY IV NR ×12 (20:00)
[2021-03-07] MEDS: ATORVASTATIN 20 MG TAB PO SCH (22:06)
[2021-03-07] MEDS: ATRACURIUM BESYLATE 1,000 MG in D5W 5% 150 ML IV SCH (22:33)
[2021-03-08] VITALS (108 sets, daily range): BP systolic 84–111; BP diastolic 44–61
[2021-03-08] MEDS: InsuLIN REG 1unit/0.01ml Soln (100units/ml) SC SCH ×4 (00:30→18:44)
[2021-03-08] MEDS: ACCU-CHEK COMFORT CURVE STRIP VI SCH ×4 (00:30→18:31)
[2021-03-08] MEDS: PROPOFOL 100 ML IV SCH ×5 (02:20→22:00)
[2021-03-08] MEDS: NOREPINEPHRINE 8 MG/250ML KIT 250 ML IV SCH ×5 (04:50→23:33)
[2021-03-08] MEDS: fentaNYL Drip 2500mCg/250mlNS 250 ML IV SCH ×3 (05:43→21:40)
[2021-03-08] MEDS: METOCLOPRAMIDE HCL 5MG/ml INJ 2ml VIAL IV SCH ×2 (06:52→14:59)
[2021-03-08] MEDS: LINEZOLID 600MG/300ML 300 ML IV SCH ×2 (06:54→18:31)
[2021-03-08] MEDS: IPRATROPIUM BROM 0.5 MG/2.5ML INH SOL NEB PRN ×2 (08:13→22:11)
[2021-03-08] MEDS: BUDESONIDE (INHALATION) 0.5 MG/2 ML NEB NEB SCH ×2 (08:14→22:11)
[2021-03-08] MEDS: ALBUTEROL SULF 2.5 MG/0.5ML(0.5%) NEB SOLN NEB PRN ×2 (08:14→22:11)
[2021-03-08 09:03] LABS: Hematocrit 37.6 % (41.0-53.0); Hemoglobin 12.3 g/dL (13.5-17.5); Mean Corpuscular Hemoglobin 32.3 pg (28.0-32.0); Mean Corpuscular Hgb Conc. 32.6 g/dL (32.0-36.0); Mean Corpuscular Volume 99.1 fL (80.0-100.0); Red Cell Distribution Width 15.9 % (11.8-14.3); White Blood Cell 15.3 10^3/uL (4.4-10.8)
[2021-03-08 09:10] LABS: Basophils % (manual) 0 (0.0-2.0); Blast Cells 0; Promyelocytes % 0; Reactive Lymphocytes 0
[2021-03-08 09:17] LABS: Albumin 1.1 g/dL (3.4-5.0); Calcium 6.1 mg/dL (8.5-10.1); Magnesium 2.3 mg/dL (1.6-2.6); Potassium 4.9 mmol/L (3.5-5.1)
[2021-03-08] MEDS: PANTOPRAZOLE 40 MG/10 ML VIAL INJ IV SCH (09:20)
[2021-03-08] MEDS: ZINC SULFATE 220mg CAP or TAB PO SCH (09:20)
[2021-03-08] MEDS: CLOPIDOGREL BISULFATE 75 MG TAB PO SCH (09:20)
[2021-03-08] MEDS: ASCORBIC ACID 1,000 MG TAB PO SCH (09:20)
[2021-03-08] MEDS: LACTULOSE 20Gm/30ML SOLN PO SCH (09:20)
[2021-03-08 09:21] LABS: BUN/Creatinine Ratio 23.3; Bilirubin, Total 1.3 mg/dL (0.2-1.0); Phosphorus 5.4 mg/dL (2.5-4.90); Total Protein 4.7 g/dL (6.4-8.2)
[2021-03-08] MEDS: FINASTERIDE 5 MG TAB PO SCH (09:21)
[2021-03-08] MEDS: FUROSEMIDE 20 MG/2 ML VIAL IV SCH (09:21)
[2021-03-08] MEDS: SODIUM CHLOR 0.9% PF (SALINE LOCK) 10ML VIAL/SYR IV SCH (09:21)
[2021-03-08] MEDS: MIDAZOLAM DRIP 50 mg/50mL 50 ML IV SCH ×4 (09:22→21:40)
[2021-03-08] MEDS: CLOTRIMAZOLE 1 % CREAM 15GM TOP SCH (09:22)
[2021-03-08] MEDS: CHOLECALCIFEROL (VITD3) 2,000 UNIT CAP/TAB PO SCH (09:22)
[2021-03-08] MEDS: ENOXAPARIN SOD 40 MG/0.4 ML SYRINGE SC SCH (09:22)
[2021-03-08] MEDS: MEROPENEM 1GM IVPB 100 ML IV SCH (09:23)
[2021-03-08] MEDS: PHENYLEPHRINE INJ 80 MG in SODIUM CHL 0.9% 242 ML IV SCH ×2 (09:24→17:43)
[2021-03-08 10:04] LABS: INR 1.14 (0.9-1.15)
[2021-03-08] MEDS ORDERED: SODIUM BICARBONATE 8.4 % INJ 50ML VIAL IV ONE ×2 (10:30→12:00)
[2021-03-08 11:01] LABS: Band Neutrophils % (manual) 29; Eosinophils % (manual) 1 (0-7); Lymphocytes % (manual) 2 (10.0-50.0); Metamyelocytes % 5; Monocytes % (manual) 2 (0-12); Myelocytes % 2
[2021-03-08] MEDS: INSULIN LANTUS (GLARGINE) 1 /0.01ml (100units/ml) SC SCH (12:06)
[2021-03-08] MEDS: HYDROCORTISONE SOD SUCC 100 MG/2ML INJ VIAL IV SCH ×2 (12:08→18:31)
[2021-03-08] MEDS: DOPamine 1600MCG/ML D5W 250 ML IV SCH (14:30)
[2021-03-08] MEDS: VASOPRESSIN 50 UNITS in D5W 5% 247.5 ML IV SCH (17:43)
[2021-03-08] MEDS: ATRACURIUM BESYLATE 1,000 MG in D5W 5% 150 ML IV SCH (17:45)
[2021-03-08] MEDS ORDERED: TPN PER PHARMACY IV NR ×8 (20:00)
[2021-03-09] VITALS (104 sets, daily range): BP systolic 80–115; BP diastolic 37–55
[2021-03-09] MEDS: METOCLOPRAMIDE HCL 5MG/ml INJ 2ml VIAL IV SCH ×4 (00:08→22:11)
[2021-03-09] MEDS: CLOTRIMAZOLE 1 % CREAM 15GM TOP SCH ×3 (00:08→22:13)
[2021-03-09] MEDS: ATORVASTATIN 20 MG TAB PO SCH ×2 (00:08→22:11)
[2021-03-09] MEDS: SODIUM CHLOR 0.9% PF (SALINE LOCK) 10ML VIAL/SYR IV SCH ×3 (00:08→22:11)
[2021-03-09] MEDS: MEROPENEM 1GM IVPB 100 ML IV SCH ×3 (00:08→21:41)
[2021-03-09] MEDS: INSULIN LANTUS (GLARGINE) 1 /0.01ml (100units/ml) SC SCH ×3 (00:09→22:12)
[2021-03-09] MEDS: HYDROCORTISONE SOD SUCC 100 MG/2ML INJ VIAL IV SCH ×4 (00:09→18:00)
[2021-03-09] MEDS: DOPamine 1600MCG/ML D5W 250 ML IV SCH ×3 (01:50→22:40)
[2021-03-09] MEDS: MIDAZOLAM DRIP 50 mg/50mL 50 ML IV SCH ×4 (02:10→23:28)
[2021-03-09] MEDS: fentaNYL Drip 2500mCg/250mlNS 250 ML IV SCH ×3 (05:33→21:30)
[2021-03-09] MEDS: PROPOFOL 100 ML IV SCH ×2 (06:19→12:47)
[2021-03-09] MEDS: ACCU-CHEK COMFORT CURVE STRIP VI SCH ×4 (06:20→18:00)
[2021-03-09] MEDS: InsuLIN REG 1unit/0.01ml Soln (100units/ml) SC SCH ×4 (06:20→18:00)
[2021-03-09] MEDS: LINEZOLID 600MG/300ML 300 ML IV SCH ×2 (06:20→18:00)
[2021-03-09] MEDS: ALBUTEROL SULF 2.5 MG/0.5ML(0.5%) NEB SOLN NEB PRN ×2 (06:41→22:05)
[2021-03-09] MEDS: BUDESONIDE (INHALATION) 0.5 MG/2 ML NEB NEB SCH ×2 (06:41→22:04)
[2021-03-09] MEDS: IPRATROPIUM BROM 0.5 MG/2.5ML INH SOL NEB PRN ×2 (06:42→22:05)
[2021-03-09] MEDS: VASOPRESSIN 50 UNITS in D5W 5% 247.5 ML IV SCH (07:40)
[2021-03-09] MEDS: CHOLECALCIFEROL (VITD3) 2,000 UNIT CAP/TAB PO SCH (09:10)
[2021-03-09] MEDS: ZINC SULFATE 220mg CAP or TAB PO SCH (09:10)
[2021-03-09] MEDS: CLOPIDOGREL BISULFATE 75 MG TAB PO SCH (09:10)
[2021-03-09] MEDS: ASCORBIC ACID 1,000 MG TAB PO SCH (09:11)
[2021-03-09] MEDS: LACTULOSE 20Gm/30ML SOLN PO SCH (09:11)
[2021-03-09] MEDS: FINASTERIDE 5 MG TAB PO SCH (09:11)
[2021-03-09] MEDS: PANTOPRAZOLE 40 MG/10 ML VIAL INJ IV SCH (09:12)
[2021-03-09] MEDS: FUROSEMIDE 20 MG/2 ML VIAL IV SCH (09:12)
[2021-03-09] MEDS: NOREPINEPHRINE 8 MG/250ML KIT 250 ML IV SCH ×3 (09:16→23:27)
[2021-03-09] MEDS: PHENYLEPHRINE INJ 80 MG in SODIUM CHL 0.9% 242 ML IV SCH (09:16)
[2021-03-09 09:59] LABS: Hemoglobin 10.7 g/dL (13.5-17.5); Mean Corpuscular Hgb Conc. 31.3 g/dL (32.0-36.0)
[2021-03-09] MEDS: ENOXAPARIN SOD 40 MG/0.4 ML SYRINGE SC SCH (10:00)
[2021-03-09 10:03] LABS: Mean Corpuscular Hemoglobin 33.3 pg (28.0-32.0); Mean Corpuscular Volume 106.5 fL (80.0-100.0); Red Cell Distribution Width 17.4 % (11.8-14.3)
[2021-03-09 10:09] LABS: Basophils % (manual) 0 (0.0-2.0); Blast Cells 0; Eosinophils % (manual) 0 (0-7); Promyelocytes % 0; Reactive Lymphocytes 0
[2021-03-09 10:22] LABS: INR 1.09 (0.9-1.15)
[2021-03-09 13:24] LABS: Magnesium 1.9 mg/dL (1.6-2.6)
[2021-03-09 13:28] LABS: BUN/Creatinine Ratio 20.1; Bilirubin, Total 1.6 mg/dL (0.2-1.0); Phosphorus 4.9 mg/dL (2.5-4.90); Total Protein 4.5 g/dL (6.4-8.2)
[2021-03-09 13:34] LABS: Albumin 0.9 g/dL (3.4-5.0); Calcium 5.7 mg/dL (8.5-10.1)
[2021-03-09 13:51] LABS: Band Neutrophils % (manual) 41; Lymphocytes % (manual) 6 (10.0-50.0); Metamyelocytes % 4; Monocytes % (manual) 3 (0-12); Myelocytes % 2
[2021-03-09] MEDS ORDERED: TPN PER PHARMACY IV NR ×8 (20:00)
[2021-03-09] MEDS ORDERED: SODIUM BICARBONATE 50ML VIAL 150 ML in D5W 5% 1,000 ML IV ONE (20:00)
[2021-03-09] MEDS ORDERED: ATRACURIUM BESYLATE 1,000 MG in D5W 5% 150 ML IV SCH (20:00)
[2021-03-10] VITALS (10 sets, daily range): BP systolic 81–90; BP diastolic 39–50
[2021-03-10] MEDS: HYDROCORTISONE SOD SUCC 100 MG/2ML INJ VIAL IV SCH (00:55)
[2021-03-10] MEDS: InsuLIN REG 1unit/0.01ml Soln (100units/ml) SC SCH (00:56)
[2021-03-10] MEDS: ACCU-CHEK COMFORT CURVE STRIP VI SCH (00:56)
[2021-03-10] MEDS ORDERED: ENOXAPARIN SOD 30 MG/0.3 ML SYRINGE SC SCH (10:00)
== END 2021-03-10 04:36 | DRG 207 ==
LOC: EDBD 21:00 → ER 21:08 → OVERFLOW 02-15 02:54 → DOU IN ICU 02-15 04:30
PROVIDERS: ADMIT Nurse Practitioner; ATTEND Internal Medicine Pulmonary Disease
PROC: XW033H5 Introduction of Tocilizumab into Peripheral Vein, Percutaneous Approach, New Technology Group 5 (ICD-10-PCS; 2021-02-15)
PROC: XW033E5 Introduction of Remdesivir Anti-infective into Peripheral Vein, Percutaneous Approach, New Technology Group 5 (ICD-10-PCS; 2021-02-15)
PROC: 02HV33Z Insertion of Infusion Device into Superior Vena Cava, Percutaneous Approach (ICD-10-PCS; 2021-02-22)
PROC: 5A09457 Assistance with Respiratory Ventilation, 24-96 Consecutive Hours, Continuous Positive Airway Pressure (ICD-10-PCS; 2021-02-22)
PROC: 5A1955Z Respiratory Ventilation, Greater than 96 Consecutive Hours (ICD-10-PCS; principal; 2021-02-23)
PROC: 0BH17EZ Insertion of Endotracheal Airway into Trachea, Via Natural or Artificial Opening (ICD-10-PCS; 2021-02-23)
PROC: 0W9930Z Drainage of Right Pleural Cavity with Drainage Device, Percutaneous Approach (ICD-10-PCS; 2021-02-23)
PROC: 0W9B3ZZ Drainage of Left Pleural Cavity, Percutaneous Approach (ICD-10-PCS; 2021-03-06)
PROC: 0W9B30Z Drainage of Left Pleural Cavity with Drainage Device, Percutaneous Approach (ICD-10-PCS; 2021-03-06)
DX: U07.1 COVID-19 (principal); A41.89 Other specified sepsis; J12.82 Pneumonia due to coronavirus disease 2019; N17.0 Acute kidney failure with tubular necrosis; E43 Unspecified severe protein-calorie malnutrition; R65.21 Severe sepsis with septic shock; J80 Acute respiratory distress syndrome; J93.9 Pneumothorax, unspecified; J90 Pleural effusion, not elsewhere classified; Z66 Do not resuscitate; T38.0X5A Adverse effect of glucocorticoids and synthetic analogues, initial encounter; D89.839 Cytokine release syndrome, grade unspecified; E87.5 Hyperkalemia; I25.10 Atherosclerotic heart disease of native coronary artery without angina pectoris; E78.5 Hyperlipidemia, unspecified; I10 Essential (primary) hypertension; R00.1 Bradycardia, unspecified; R33.9 Retention of urine, unspecified; J98.2 Interstitial emphysema; E11.65 Type 2 diabetes mellitus with hyperglycemia; Z78.9 Other specified health status; Z95.5 Presence of coronary angioplasty implant and graft; Z22.322 Carrier or suspected carrier of Methicillin resistant Staphylococcus aureus; Y92.89 Other specified places as the place of occurrence of the external cause
CPT/HCPCS: 32555; 36415; 36569; 36600; 71045; 74018; 76775; 80048; 80053; 80061; 81001; 82040; 82533; 82728; 82805; 82962; 83036; 83605; 83615; 83735; 83986; 84100; 84132; 84443; 84478; 84484; 85007; 85025; 85027; 85379; 85610; 85730; 86141; 87040; 87070; 87077; 87081; 87205; 87426; 89051; 93005; 93306; 93970; 94002; 94003; 94640; 94660; 96365; 96367; 96375; 99291; C9113; G0378; J0330; J0610; J0696; J1100; J1450; J1815; J2185; J2250; J2405; J2704; J7060; J7131; P9047; Q0161